=== PATIENT | female | born 1940 | race Caucasian/White ===

== ENCOUNTER 2020-05-03 02:54 | Inpatient (IN) | payer MEDICARE ==
[~2020-05-03] VITALS: Ht 165.1 cm; Wt 64.1 kg
[2020-05-03] MEDS: NITROGLYCERIN SUBLINGUAL 0.4 MG BOTTLE OF 25. SL PRN ×2 (03:12→03:25)
[2020-05-03 03:29] LABS: BASO # 0.2 x10^3/uL (0.0-0.2); BASO % 1 % (0-3); EOS # 0.2 x10^3/uL (0.0-0.7); EOS % 2 % (0-3); HEMATOCRIT 40.3 % (36.0-47.0); HEMOGLOBIN 13.4 g/dL (12.0-15.5); LYMPH # 1.7 x10^3/uL (1.0-4.8); LYMPH % 13 % (24-48); MEAN CORPUSCULAR HEMOGLOBIN 36 pg (25-35); MEAN CORPUSCULAR HGB CONC 33 g/dL (31-37); MEAN CORPUSCULAR VOLUME 108 fL (79-100); MONO # 0.4 x10^3/uL (0.0-1.1); MONO % 3 % (0-9); NEUT # 10.7 x10^3/uL (1.8-7.7); NEUT % 81 % (31-73); PLATELET COUNT 253 x10^3/uL (140-400); RED BLOOD COUNT 3.75 x10^6/uL (3.50-5.40); RED CELL DISTRIBUTION WIDTH 16.6 % (11.5-14.5); WHITE BLOOD COUNT 13.2 x10^3/uL (4.0-11.0)
[2020-05-03 03:43] LABS: CALCIUM 9.2 mg/dL (8.5-10.1); CREATININE 0.9 mg/dL (0.6-1.0); GFR 59.9
[2020-05-03 03:48] LABS: ALBUMIN 3.3 g/dL (3.4-5.0); ALBUMIN/GLOBULIN RATIO 0.8 (1.0-1.7); TOTAL BILIRUBIN 1.1 mg/dL (0.2-1.0); TOTAL PROTEIN 7.7 g/dL (6.4-8.2)
[2020-05-03] MEDS ORDERED: HEPARIN for IV BOLUS 10,000 UNIT/10 ML VIAL. IV ONE (04:00)
[2020-05-03] MEDS ORDERED: CONTRAST GIVEN. MC PRN (04:00)
[2020-05-03] MEDS ORDERED: IV RINGERS,LACTATED 1000ML 1,000 ML IV ONE (04:00)
[2020-05-03] MEDS ORDERED: HEPARIN 25,000UTS/250ML PREMIX 250 ML IV ONE ×2 (04:00)
--- NOTE | 2020-05-03 04:10 | PHYS DOC ---
General Adult EDM: Chief Complaint: SHORTNESS OF BREATH HPI: HPI: The history was obtained from the EMS and the patient. Patient is a 80-year-old female with PMH pacemaker placement, hyperlipidemia who presents with a chief complaint of chest pain and shortness of breath. Patient states she developed sudden onset chest pain approximately 3 hours prior to arrival. She states she noted associated shortness of breath as well. She does not use oxygen at home. Denies any history of heart attack. Unsure of why she has a pacemaker. Denies cough or fever. EMS states she was 80% on room air upon arrival. They states she did improve quickly with a nonrebreather to 98%. Patient states she feels as though something is sitting on her chest. She does note diaphoresis. Denies nausea. States the chest pressure is nonradiating. Nothing alleviates or exacerbate her symptoms. She does not think she has had a heart catheterization or invasive cardiac testing in the past. She denies syncope. She denies history of blood clot in legs or lungs. Denies any swelling to legs. States that she has ambulatory at baseline. Review of Systems: Review of Systems: Constitutional: Denies fever or chills. [] Eyes: Denies change in visual acuity. [] HENT: Denies nasal congestion or sore throat. [] Respiratory: Positive for shortness of breath Cardiovascular: Positive for chest pain GI: Denies abdominal pain, nausea, vomiting, bloody stools or diarrhea. [] : Denies dysuria. [] Musculoskeletal: Denies back pain or joint pain. [] Integument: Denies rash. [] Neurologic: Denies headache, focal weakness or sensory changes. [] Endocrine: Denies polyuria or polydipsia. [] Lymphatic: Denies swollen glands. [] Psychiatric: Denies depression or anxiety. [] Heart Score: HEART Score for Chest Pain: HEART Score for Chest Pain Response (Comments) Value History Highly Suspicious [address] Depression 2 Age > 65 2 Risk Factors >3 Risk Factors or Hx CAD 2 Troponin >3 x Normal Limit 2 Total 10 Risk Factors: Risk Factors: DM, Current or recent (<one month) smoker, HTN, HLP, family history of CAD, obesity. Risk Scores: Score 0 - 3: 2.5% MACE over next 6 weeks - Discharge Home Score 4 - 6: 20.3% MACE over next 6 weeks - Admit for Clinical Observation Score 7 - 10: 72.7% MACE over next 6 weeks - Early Invasive Strategies Current Medications: Current Medications Medications (Trade) Dose Ordered Sig/[facility] Start Time Stop Time Status Last Admin Dose Admin Aspirin (Aspirin Chewable) 324 mg 1X ONCE 05/03/20 04:00 05/03/20 04:01 UNV Fentanyl Citrate (Fentanyl 2ml Vial) 50 mcg 1X ONCE 05/03/20 04:30 05/03/20 04:31 Heparin Sodium (Porcine) (Heparin Sodium) 4,000 unit 1X ONCE 05/03/20 04:00 05/03/20 04:01 05/03/20 03:33 4,000 UNIT Heparin Sodium/ Dextrose 250 ml @ 0 mls/hr 1X ONCE 05/03/20 04:00 05/03/20 04:01 05/03/20 03:43 8.3 MLS/HR Info (CONTRAST GIVEN -- Rx MONITORING) 1 each PRN DAILY PRN 05/03/20 04:00 05/05/20 03:59 Iohexol (Omnipaque 350 Mg/ml) 70 ml 1X ONCE 05/03/20 04:30 05/03/20 04:31 Nitroglycerin (Nitrostat) 0.4 mg PRN Q5MIN PRN 05/03/20 03:15 05/03/20 03:25 0.4 MG Ringer's Solution 1,000 ml @ 1,000 mls/hr 1X ONCE 05/03/20 04:00 05/03/20 04:59 05/03/20 03:46 1,000 MLS/HR Allergies: Allergies: Allergies Coded Allergies Type Severity Reaction Last Updated Verified No Known Drug Allergies 05/03/20 No Physical Exam: PE: Constitutional: Well developed, well nourished, no acute distress, non-toxic appearance. [] HENT: Normocephalic, atraumatic, bilateral external ears normal, oropharynx moist, no oral exudates, nose normal. [] Eyes: PERRLA, EOMI, conjunctiva normal, no discharge. [] Neck: Normal range of motion, no tenderness, supple, no stridor. [] Cardiovascular:H tachycardic. Lungs & Thorax: Rhonchorous breath sounds noted at the bases bilaterally. Tachypneic. Abdomen: Bowel sounds normal, soft, no tenderness, no masses, no pulsatile ma sses. [] Skin: Diaphoretic. Back: No tenderness, no CVA tenderness. [] Extremities: No tenderness, no cyanosis, no clubbing, ROM intact, no edema. [] Neurologic: Alert and oriented X 3, normal motor function, normal sensory function, no focal deficits noted. [] Psychologic: Affect normal, judgement normal, mood normal. [] Current Patient Data: Labs: Laboratory Tests Test 05/03/20 03:08 05/03/20 03:09 05/03/20 03:10 Glucose (Fingerstick) 274 mg/dL (70-99) H White Blood Count 13.2 x10^3/uL (4.0-11.0) H Red Blood Count 3.75 x10^6/uL (3.50-5.40) Hemoglobin 13.4 g/dL (12.0-15.5) Hematocrit 40.3 % (36.0-47.0) Mean Corpuscular Volume 108 fL (79-100) H Mean Corpuscular Hemoglobin 36 pg (25-35) H Mean Corpuscular Hemoglobin Concent 33 g/dL (31-37) Red Cell Distribution Width 16.6 % (11.5-14.5) H Platelet Count 253 x10^3/uL (140-400) Neutrophils (%) (Auto) 81 % (31-73) H Lymphocytes (%) (Auto) 13 % (24-48) L Monocytes (%) (Auto) 3 % (0-9) Eosinophils (%) (Auto) 2 % (0-3) Basophils (%) (Auto) 1 % (0-3) Neutrophils # (Auto) 10.7 x10^3/uL (1.8-7.7) H Lymphocytes # (Auto) 1.7 x10^3/uL (1.0-4.8) Monocytes # (Auto) 0.4 x10^3/uL (0.0-1.1) Eosinophils # (Auto) 0.2 x10^3/uL (0.0-0.7) Basophils # (Auto) 0.2 x10^3/uL (0.0-0.2) Sodium Level 139 mmol/L (136-145) Potassium Level 4.0 mmol/L (3.5-5.1) Chloride Level 102 mmol/L (98-107) Carbon Dioxide Level 28 mmol/L (21-32) Anion Gap 9 (6-14) Blood Urea Nitrogen 13 mg/dL (7-20) Creatinine 0.9 mg/dL (0.6-1.0) Estimated GFR (Cockcroft-Gault) 59.9 BUN/Creatinine Ratio 14 (6-20) Glucose Level 310 mg/dL (70-99) H Calcium Level 9.2 mg/dL (8.5-10.1) Total Bilirubin 1.1 mg/dL (0.2-1.0) H Aspartate Amino Transferase (AST) 26 U/L (15-37) Alanine Aminotransferase (ALT) 26 U/L (14-59) Alkaline Phosphatase 84 U/L (46-116) Troponin I Quantitative 0.388 ng/mL (0.000-0.055) Total Protein 7.7 g/dL (6.4-8.2) Albumin 3.3 g/dL (3.4-5.0) L Albumin/Globulin Ratio 0.8 (1.0-1.7) L POC Troponin I 0.06 ng/ml (<0.08) Laboratory Tests 05/03/20 03:09 Laboratory Tests 05/03/20 03:09 Vital Signs: Vital Signs Date Time Temp Pulse Resp B/P (MAP) Pulse Ox O2 Delivery O2 Flow Rate FiO2 05/03/20 03:25 100 148/75 EKG: EKG: EKG consistent with tachycardia. Nonspecific interventricular conduction delay noted. Ventricular rate of 117 bpm. Left axis noted. ST segment elevation noted in the inferior and lateral precordial leads. Inverted T waves noted in leads I, aVR, aVL. No previous for comparison. 0301 EKG consistent with tachycardia. Nonspecific interventricular conduction delay noted. Ventricular rate of 101 bpm. Left axis noted. ST segment elevation noted in the inferior lateral precordial leads. Flipped T waves noted in leads I, aVR, aVL. No change from EKG earlier today.0325 EKG consistent with sinus rhythm. Ventricular rate of 96 bpm. Nonspecific interventricular conduction delay noted. ST elevation noted in the inferior lateral precordial leads. Inverted T waves noted in leads I, aVR, aVL. Left axis present. Ventricular rate of 96 bpm. Similar to EKG obtained earlier today. Radiology/Procedures: Radiology/Procedures: [] Course & Med Decision Making: Course & Med Decision Making Pertinent Labs and Imaging studies reviewed. (See chart for details) Patient is an 80-year-old female who arrives via EMS with a chief complaint of acute onset chest pain shortness of breath. Upon arrival the patient appears diaphoretic and ill. She is at 98% on a nonrebreather. Initial EKG does show concerning discordant ST segment elevation in the inferior lateral precordial leads. Inverted T waves noted in leads I, aVL. Nonspecific interventricular conduction delay was present. No classic STEMI patterns were noted. However I did discuss the case immediately with at 0305. given the patient's clinical appearance and abnormal EKG. He recommended pain control, troponin testing, and repeat EKG and reevaluation. Initial high-sensitivity troponin returned at 0.388. This is in the setting of normal kidney function. I did perform bedside echo and did not reveal any obvious right ventricular dilation. Multiple EKGs were repeated and showed no dynamic ischemic changes. I again discussed the case with at 0325. Patient's pain has improved with nitroglycerin and fentanyl. Cardiology did recommend heparin bolus and infusio n. Aspirin was administered. Unclear exact etiology of her symptoms and troponin elevation at this time. However I do suspect this is most likely ACS and NSTEMI etiology versus pulmonary embolism. Per the recommendations of cardiology CT angiogram of the chest will be deferred as she may go for cardiac catheterization later this morning. Given the patient shows no hemodynamic instability I do feel it is reasonable to defer CT imaging given she does have heparin infusion running at this time. Patient has remained hemodynamically stable and chest pain-free in the emergency department. She was able to be de- escalated to nasal cannula with appropriate oxygenation while in the emergency department. She will be hospitalized to the intensive care unit for close monitoring. Tyronon Disclaimer: Luis A Disclaimer: This electronic medical record was generated, in whole or in part, using a voice recognition dictation system. Departure Departure Impression: Primary Impression: NSTEMI (non-ST elevated myocardial infarction) Additional Impressions: Hyperlipidemia Qualified Codes: E78.5 - Hyperlipidemia, unspecified Hypertension Qualified Codes: I10 - Essential (primary) hypertension Abnormal EKG History of pacemaker Disposition: ADMITTED INPATIENT Justicifation of Admission Dx: Justifications for Admission: Justification of Admission Dx: Yes Angina: Cresendo Worsening of Sym NH: Acute NSTEMI KAYODE MACEDO DO May 03, 2020 04:10
[2020-05-03 04:13] LABS: ISTAT BE VENOUS 4 mmol/L (0-3); ISTAT HCO3 VEN 30 mmol/L (24-28); ISTAT PCO2 VEN 53 mmHg (41-51); ISTAT PH VEN 7.36 (7.32-7.42); ISTAT PO2 VEN 58 mmHg (20-40); ISTAT SAT O2 VEN 88 %; ISTAT TCO2 VEN 31 mmol/L (21-32)
[2020-05-03] MEDS ORDERED: ONDANSETRON PF 4 MG/2 ML VIAL. IV PRN (04:15)
[2020-05-03] MEDS ORDERED: MORPHINE SULFATE 4 MG/ML VIAL. IV PRN (04:15)
[2020-05-03] MEDS ORDERED: IOHEXOL 350 MG/ML 100 ML VIAL. IV ONE (04:30)
[2020-05-03] MEDS ORDERED: fentaNYL PF VIAL 100 MCG/2 ML VIAL IVP ONE (04:30)
[2020-05-03] MEDS ORDERED: ASPIRIN CHEWABLE 81 MG TABLET. PO ONE (04:30)
[2020-05-03 04:37] LABS: CHOLESTEROL/HDL RATIO 2.5
--- NOTE | 2020-05-03 04:37 | RAD ---
INDICATION: Reason: CP / Spl. Instructions: / History: COMPARISON: None. FINDINGS: Single view of chest obtained. Pacemaker is seen as well as mild prominence of cardiac silhouette. Interstitial and alveolar opacities bilaterally most severe at the lung bases. Obliquely oriented line near the right lung apex. IMPRESSION: * Interstitial and alveolar opacities bilaterally which could be from edema or infiltrate. * Obliquely oriented line near the right apex partially seen. Would favor that this is secondary to overlap of structures rather than pleural line from pneumothorax given the morphology. Electronically signed by: Andrei Logan MD (05/03/2020 4:34 AM) [id number]
--- NOTE | 2020-05-03 09:37 | PDOC1 ---
History and Physical Date of Service: DOS: DATE: 05/03/20 TIME: 09:33 Chief Complaint: Chief Complain: Chest pain History of Present Illness: HPI: Patient is an 80-year-old female with past medical history of pacemaker placement, dyslipidemia who comes in with shortness of breath and chest pain started a couple hours ago. Patient is a poor historian and is unsure why she has a pacemaker. Patient was saturating 80% on room air upon arrival. Patient describes the chest pain as pressure-like and there is associated diaphoresis. Pain does not radiate anywhere. There is no exacerbating or alleviating factors. Denies fevers, abdominal pain, diarrhea, dysuria, syncope, or palpitations. Past Medical/Surgical History: PMH/PSH: Pacemaker placement Dyslipidemia Allergies: Allergies: Coded Allergies: No Known Drug Allergies (Unverified , 05/03/20) Family History: Family History: Reviewed and none reported. Patient is a poor historian Social History: Social History: Denies alcohol, drug, was tobacco abuse Current Medications: Current Medications Current Medications Ringer's Solution 1,000 ml @ 1,000 mls/hr 1X ONCE IV Last administered on 05/03/20at 03:46; Start 05/03/20 at 04:00; Stop 05/03/20 at 04:59; Status DC Nitroglycerin (Nitrostat) 0.4 mg PRN Q5MIN PRN SL CHEST PAIN Last administered on 05/03/20at 03:25; Start 05/03/20 at 03:15 Heparin Sodium (Porcine) (Heparin Sodium) 4,000 unit 1X ONCE IV Last administered on 05/03/20at 03:33; Start 05/03/20 at 04:00; Stop 05/03/20 at 04:01; Status DC Heparin Sodium/ Dextrose 250 ml @ 0 mls/hr 1X ONCE IV Last administered on 05/03/20at 03:43; Start 05/03/20 at 04:00; Stop 05/03/20 at 04:01; Status DC Fentanyl Citrate (Fentanyl 2ml Vial) 50 mcg 1X ONCE IVP ; Start 05/03/20 at 04:30; Stop 05/03/20 at 04:31; Status DC Iohexol (Omnipaque 350 Mg/ml) 70 ml 1X ONCE IV ; Start 05/03/20 at 04:30; Stop 05/03/20 at 04:31; Status DC Info (CONTRAST GIVEN -- Rx MONITORING) 1 each PRN DAILY PRN MC SEE COMMENTS; Start 05/03/20 at 04:00; Stop 05/05/20 at 03:59 Aspirin (Aspirin Chewable) 324 mg 1X ONCE PO Last administered on 05/03/20at 04:15; Start 05/03/20 at 04:30; Stop 05/03/20 at 04:31; Status DC Ondansetron HCl (Zofran) 4 mg PRN Q8HRS PRN IV NAUSEA/VOMITING 1ST CHOICE; Start 05/03/20 at 04:15; Stop 05/04/20 at 04:14 Morphine Sulfate (Morphine Sulfate) 4 mg PRN Q2HR PRN IV SEVERE PAIN 7-10; Start 05/03/20 at 04:15; Stop 05/04/20 at 04:14 Heparin Sodium/ Dextrose 250 ml @ 8.34 mls/hr ONCE ONCE IV ; Start 05/03/20 at 04:00; Stop 05/04/20 at 09:58 ROS: Review of Systems Review of System REVIEW OF SYSTEMS: GENERAL: Denies weakness SKIN: No bruising, hair changes or rashes. EYES: No blurred, double or loss of vision. NOSE AND THROAT: No history of nosebleeds, hoarseness or sore throat. HEART: No history of palpitations, chest pain or shortness of breath on exertion. LUNGS: Denies cough, hemoptysis, wheezing or shortness of breath. GASTROINTESTINAL: Denies changes in appetite, nausea, vomiting, diarrhea or constipation. GENITOURINARY: No history of frequency, urgency, hesitancy or nocturia. NEUROLOGIC: Denies history of numbness, tingling, or tremor. PSYCHIATRIC: No history of panic, anxiety or depression. ENDOCRINE: No history of heat or cold intolerance, polyuria or polydipsia. EXTREMITIES: Denies joint pain, pain on walking or stiffness. Physical Exam: Vital Signs: Vital Signs Date Time Temp Pulse Resp B/P (MAP) Pulse Ox O2 Delivery O2 Flow Rate FiO2 05/03/20 04:07 88 150/70 (96) 99 Nasal Cannula 2.0 05/03/20 03:37 28 05/03/20 02:57 98.1 98.1 Physcial Exam: GEN: Minimal distress. Alert and oriented to self only. HEENT: Normal cephalic, atraumatic, external auditory canals are patent EYES: Extraocular muscles are intact, pupil are equally round and reactive to light and accommodation MUSCULOSKELETAL: Well developed , well nourished, good range of motion ENDOCRINE: No thyromegaly was palpated LYMPHATICS: No cervical chain or axillary nodes were noted HEMATOPOIETIC: No bruising NECK: Supple, no JVD, no thyromegaly was noted LUNGS: Clear to auscultation in all lung adams without rhonchi or wheezing HEART: RRR, S!, S2 present. Peripheral pulses intact, no obvious murmurs noted ABDOMEN: Soft, nontender. Positive bowel sounds, no organomegaly, normal bowel sounds EXTREMITIES: Without clubbing, cyanosis, or edema. Pedal pulses intact. Negative Homans sign NEUROLOGIC: Normal speech and tone. A&O x 3, moves all extremities, no obvious focal deficits PSYCHIATRIC: Normal affect, normal mood. Stable SKIN: No ulcerations or rashes, good skin turgor, no jaundice VASCULAR: Good capillary refill, neurovascular bundle appears to be intact Labs: Labs: Laboratory Tests Test 05/03/20 03:08 05/03/20 03:09 05/03/20 03:10 05/03/20 04:01 Glucose (Fingerstick) 274 mg/dL (70-99) White Blood Count 13.2 x10^3/uL (4.0-11.0) Red Blood Count 3.75 x10^6/uL (3.50-5.40) Hemoglobin 13.4 g/dL (12.0-15.5) Hematocrit 40.3 % (36.0-47.0) Mean Corpuscular Volume 108 fL (79-100) Mean Corpuscular Hemoglobin 36 pg (25-35) Mean Corpuscular Hemoglobin Concent 33 g/dL (31-37) Red Cell Distribution Width 16.6 % (11.5-14.5) Platelet Count 253 x10^3/uL (140-400) Neutrophils (%) (Auto) 81 % (31-73) Lymphocytes (%) (Auto) 13 % (24-48) Monocytes (%) (Auto) 3 % (0-9) Eosinophils (%) (Auto) 2 % (0-3) Basophils (%) (Auto) 1 % (0-3) Neutrophils # (Auto) 10.7 x10^3/uL (1.8-7.7) Lymphocytes # (Auto) 1.7 x10^3/uL (1.0-4.8) Monocytes # (Auto) 0.4 x10^3/uL (0.0-1.1) Eosinophils # (Auto) 0.2 x10^3/uL (0.0-0.7) Basophils # (Auto) 0.2 x10^3/uL (0.0-0.2) Sodium Level 139 mmol/L (136-145) Potassium Level 4.0 mmol/L (3.5-5.1) Chloride Level 102 mmol/L (98-107) Carbon Dioxide Level 28 mmol/L (21-32) Anion Gap 9 (6-14) Blood Urea Nitrogen 13 mg/dL (7-20) Creatinine 0.9 mg/dL (0.6-1.0) Estimated GFR (Cockcroft-Gault) 59.9 BUN/Creatinine Ratio 14 (6-20) Glucose Level 310 mg/dL (70-99) Calcium Level 9.2 mg/dL (8.5-10.1) Total Bilirubin 1.1 mg/dL (0.2-1.0) Aspartate Amino Transf (AST/SGOT) 26 U/L (15-37) Alanine Aminotransferase (ALT/SGPT) 26 U/L (14-59) Alkaline Phosphatase 84 U/L (46-116) Troponin I Quantitative 0.388 ng/mL (0.000-0.055) FK-[id number]-Type Natriuretic Peptide 68828 pg/mL (0-449) Total Protein 7.7 g/dL (6.4-8.2) Albumin 3.3 g/dL (3.4-5.0) Albumin/Globulin Ratio 0.8 (1.0-1.7) Triglycerides Level 83 mg/dL (0-150) Cholesterol Level 153 mg/dL (0-200) LDL Cholesterol, Calculated 74 mg/dL (0-100) VLDL Cholesterol, Calculated 17 mg/dL (0-40) Non-HDL Cholesterol Calculated 91 mg/dL (0-129) HDL Cholesterol 62 mg/dL (40-60) Cholesterol/HDL Ratio 2.5 Bedside Troponin I 0.06 ng/ml (<0.08) Bedside Venous pH 7.36 (7.32-7.42) Bedside Venous pCO2 53 mmHg (41-51) Bedside Venous pO2 58 mmHg (20-40) Venous Blood HCO3 30 mmol/L (24-28) POC Venous O2 Saturation (Christine) 88 % Bedside FiO2 21.0 Test 05/03/20 07:53 05/03/20 07:56 Troponin I Quantitative 1.793 ng/mL (0.000-0.055) SARS-CoV-2 Antigen (Rapid) Negative (NEGATIVE) Laboratory Tests Test 05/03/20 03:08 05/03/20 03:09 05/03/20 03:10 05/03/20 04:01 Glucose (Fingerstick) 274 mg/dL (70-99) White Blood Count 13.2 x10^3/uL (4.0-11.0) Red Blood Count 3.75 x10^6/uL (3.50-5.40) Hemoglobin 13.4 g/dL (12.0-15.5) Hematocrit 40.3 % (36.0-47.0) Mean Corpuscular Volume 108 fL (79-100) Mean Corpuscular Hemoglobin 36 pg (25-35) Mean Corpuscular Hemoglobin Concent 33 g/dL (31-37) Red Cell Distribution Width 16.6 % (11.5-14.5) Platelet Count 253 x10^3/uL (140-400) Neutrophils (%) (Auto) 81 % (31-73) Lymphocytes (%) (Auto) 13 % (24-48) Monocytes (%) (Auto) 3 % (0-9) Eosinophils (%) (Auto) 2 % (0-3) Basophils (%) (Auto) 1 % (0-3) Neutrophils # (Auto) 10.7 x10^3/uL (1.8-7.7) Lymphocytes # (Auto) 1.7 x10^3/uL (1.0-4.8) Monocytes # (Auto) 0.4 x10^3/uL (0.0-1.1) Eosinophils # (Auto) 0.2 x10^3/uL (0.0-0.7) Basophils # (Auto) 0.2 x10^3/uL (0.0-0.2) Sodium Level 139 mmol/L (136-145) Potassium Level 4.0 mmol/L (3.5-5.1) Chloride Level 102 mmol/L (98-107) Carbon Dioxide Level 28 mmol/L (21-32) Anion Gap 9 (6-14) Blood Urea Nitrogen 13 mg/dL (7-20) Creatinine 0.9 mg/dL (0.6-1.0) Estimated GFR (Cockcroft-Gault) 59.9 BUN/Creatinine Ratio 14 (6-20) Glucose Level 310 mg/dL (70-99) Calcium Level 9.2 mg/dL (8.5-10.1) Total Bilirubin 1.1 mg/dL (0.2-1.0) Aspartate Amino Transf (AST/SGOT) 26 U/L (15-37) Alanine Aminotransferase (ALT/SGPT) 26 U/L (14-59) Alkaline Phosphatase 84 U/L (46-116) Troponin I Quantitative 0.388 ng/mL (0.000-0.055) AT-Weq-X-Type Natriuretic Peptide 57546 pg/mL (0-449) Total Protein 7.7 g/dL (6.4-8.2) Albumin 3.3 g/dL (3.4-5.0) Albumin/Globulin Ratio 0.8 (1.0-1.7) Triglycerides Level 83 mg/dL (0-150) Cholesterol Level 153 mg/dL (0-200) LDL Cholesterol, Calculated 74 mg/dL (0-100) VLDL Cholesterol, Calculated 17 mg/dL (0-40) Non-HDL Cholesterol Calculated 91 mg/dL (0-129) HDL Cholesterol 62 mg/dL (40-60) Cholesterol/HDL Ratio 2.5 Bedside Troponin I 0.06 ng/ml (<0.08) Bedside Venous pH 7.36 (7.32-7.42) Bedside Venous pCO2 53 mmHg (41-51) Bedside Venous pO2 58 mmHg (20-40) Venous Blood HCO3 30 mmol/L (24-28) POC Venous O2 Saturation (Christine) 88 % Bedside FiO2 21.0 Test 05/03/20 07:53 05/03/20 07:56 Troponin I Quantitative 1.793 ng/mL (0.000-0.055) SARS-CoV-2 Antigen (Rapid) Negative (NEGATIVE) Images: Images CXR IMPRESSION: * Interstitial and alveolar opacities bilaterally which could be from edema or infiltrate. * Obliquely oriented line near the right apex partially seen. Would favor that this is secondary to overlap of structures rather than pleural line from pneumothorax given the morphology. Assessment/Plan Assessment/Plan Chest pain concerning for NSTEMI, rule out ACS Acute hypoxic respiratory failure DLD Pacemaker placement Chest pain concerning for unstable angina/NSTEMI versus STEMI EKG showing Troponin of [id number] Continue aspirin, consider Plavix if intermediate risk will defer this to cardiology Cardiology consulted for predischarge stress testing or left heart cath Continue nitroglycerin as needed for pain Continue beta-vishal if blood pressures allow Continue high intensity statins IV morphine as needed Consider Lovenox Maintain O2 sats between 88 to 95% Trend troponins Repeat EKG in the a.m. Continue telemetry monitoring Monitor for electrolyte abnormalities Avoid NSAIDs Heparin drip for DVT prophylaxis Protonix GI prophylaxis ADA diet Full code Discussed with RN and SW Disposition pending cardiology evaluation Surrogate decision maker is the daughter Justifications for Admission Other Justification CRISTA VELASQUEZ MD May 03, 2020 09:36
[2020-05-03 11:24] LABS: PROTHROMBIN TIME PATIENT 13.8 SEC (11.7-14.0)
[2020-05-03] MEDS ORDERED: ONDANSETRON PF 4 MG/2 ML VIAL. IVP PRN (15:30)
[2020-05-03] MEDS ORDERED: CHOL500021 PO (15:38)
[2020-05-03] MEDS ORDERED: ATOR40TA59 PO (15:38)
[2020-05-03] MEDS ORDERED: CYCL5TAB PO (15:38)
[2020-05-03] MEDS ORDERED: ERGO800010 PO (15:38)
[2020-05-03] MEDS ORDERED: DULO30CA44 PO (15:38)
[2020-05-03] MEDS ORDERED: TRAZ150T49 PO (15:38)
[2020-05-03] MEDS ORDERED: ASCO500T3 PO (15:38)
[2020-05-03] MEDS ORDERED: SOTA80TA48 PO (15:38)
[2020-05-03] MEDS ORDERED: ASPI-886 PO (15:38)
[2020-05-03] MEDS ORDERED: OMEG1CAP50 PO (15:38)
[2020-05-03] MEDS ORDERED: ACET325T21 PO (15:38)
[2020-05-03] MEDS ORDERED: LISI-130 PO (15:38)
--- NOTE | 2020-05-03 16:07 | PDOC2 ---
CONSULT Date of Consult Date of Consult DATE: 05/03/20 TIME: 16:01 Reason for Consult Reason for Consult: Chest pain and shortness of breath Referring Physician Referring Physician: Dr. Pickering Identification/Chief Complaint Chief Complaint Chest pain and shortness of breath Source Source: Chart review, Patient History of Present Illness Reason for Visit: The patient is an 80-year-old female who developed chest pressure and shortness of breath while at home. Paramedics were called and found her O2 at 80% but this increased to 98% on a nonrebreather. In the emergency room the patient EKG showed no acute ST segment elevation. Troponin later this morning increased to 1.793. After treatment the patient was feeling significantly better. Chest x- ray did show infiltrates and the patient has been treated for probable heart failure. Her BNP is significantly elevated at 15 854. She has a history of a permanent pacemaker but at this time cannot get further clear history from the patient herself. Past Medical History Cardiovascular: CAD, HTN, Other (Pacemaker) Pulmonary: COPD Past Surgical History Past Surgical History: Other (Permanent pacemaker) Family History Family History: Hypertension Social History No ALCOHOL: none Current Problem List Problem List Problems Medical Problems: (1) Abnormal EKG Status: Acute (2) History of pacemaker Status: Acute (3) Hyperlipidemia Status: Acute (4) Hypertension Status: Acute (5) NSTEMI (non-ST elevated myocardial infarction) Status: Acute Current Medications Current Medications Current Medications Ringer's Solution 1,000 ml @ 1,000 mls/hr 1X ONCE IV Last administered on 05/03/20at 03:46; Start 05/03/20 at 04:00; Stop 05/03/20 at 04:59; Status DC Nitroglycerin (Nitrostat) 0.4 mg PRN Q5MIN PRN SL CHEST PAIN Last administered on 05/03/20at 03:25; Start 05/03/20 at 03:15 Heparin Sodium (Porcine) (Heparin Sodium) 4,000 unit 1X ONCE IV Last administered on 05/03/20at 03:33; Start 05/03/20 at 04:00; Stop 05/03/20 at 04:01; Status DC Heparin Sodium/ Dextrose 250 ml @ 0 mls/hr 1X ONCE IV Last administered on 05/03/20at 03:43; Start 05/03/20 at 04:00; Stop 05/03/20 at 04:01; Status DC Fentanyl Citrate (Fentanyl 2ml Vial) 50 mcg 1X ONCE IVP ; Start 05/03/20 at 04:30; Stop 05/03/20 at 04:31; Status DC Iohexol (Omnipaque 350 Mg/ml) 70 ml 1X ONCE IV ; Start 05/03/20 at 04:30; Stop 05/03/20 at 04:31; Status DC Info (CONTRAST GIVEN -- Rx MONITORING) 1 each PRN DAILY PRN MC SEE COMMENTS; Start 05/03/20 at 04:00; Stop 05/05/20 at 03:59 Aspirin (Aspirin Chewable) 324 mg 1X ONCE PO Last administered on 05/03/20at 04:15; Start 05/03/20 at 04:30; Stop 05/03/20 at 04:31; Status DC Ondansetron HCl (Zofran) 4 mg PRN Q8HRS PRN IV NAUSEA/VOMITING 1ST CHOICE; Start 05/03/20 at 04:15; Stop 05/03/20 at 15:32; Status DC Morphine Sulfate (Morphine Sulfate) 4 mg PRN Q2HR PRN IV SEVERE PAIN 7-10; Start 05/03/20 at 04:15; Stop 05/04/20 at 04:14 Heparin Sodium/ Dextrose 250 ml @ 8.34 mls/hr ONCE ONCE IV Last administered on 05/03/20at 12:56; Start 05/03/20 at 04:00; Stop 05/04/20 at 09:58 Ondansetron HCl (Zofran) 4 mg PRN Q6HRS PRN IVP NAUSEA/VOMITING; Start 05/03/20 at 15:30 Pantoprazole Sodium (Protonix) 40 mg DAILYAC PO ; Start 05/04/20 at 07:30 Active Scripts Active Reported Trazodone Hcl 150 Mg Tablet 1 Tab PO QHS 30 Days Sotalol (Sotalol Hcl) 80 Mg Tablet 1 Tab PO BID Lisinopril 40 Mg Tablet 1 Tab PO DAILY Fish Oil 1,000 Mg Softgel ([place]-3 Fatty Acids/Fish Oil) 1 Each Capsule 1 Cap PO DAILY 30 Days Duloxetine Hcl 30 Mg Capsule.dr 30 Mg PO DAILY Ergocalciferol (Ergocalciferol (Vitamin D2)) 200 Mcg/1 Ml Drops 200 Mcg PO Cyclobenzaprine Hcl 5 Mg Tablet 1 Tab PO QHS D3-50 (Cholecalciferol (Vitamin D3)) 50,000 Unit Capsule 1 Cap PO WEEKLY 28 Days Atorvastatin Calcium 40 Mg Tablet 1 Tab PO DAILY Aspirin Ec (Aspirin) 81 Mg Tablet.dr 1 Tab PO DAILY Ascorbic Acid 500 Mg Tablet 500 Mg PO Acetaminophen 325 Mg Tablet 2 Tab PO PRN DAILY PRN 30 Days Allergies Allergies: Coded Allergies: No Known Drug Allergies (Unverified , 05/03/20) ROS General: YES: Fatigue Respiratory: YES: Shortness of breath Cardiovascular: yes Chest Pain Physical Exam General: mild distress HEENT: Atraumatic Lungs: Other (Decreased breath sounds) Heart: Regular rate Abdomen: Normal bowel sounds Vitals VITALS Vital Signs Date Time Temp Pulse Resp B/P (MAP) Pulse Ox O2 Delivery O2 Flow Rate FiO2 05/03/20 15:17 88 209/91 (130) 98 Nasal Cannula 2.0 05/03/20 14:47 18 05/03/20 02:57 98.1 98.1 Labs Labs Laboratory Tests Test 05/03/20 03:08 05/03/20 03:09 05/03/20 03:10 05/03/20 04:01 Glucose (Fingerstick) 274 mg/dL (70-99) White Blood Count 13.2 x10^3/uL (4.0-11.0) Red Blood Count 3.75 x10^6/uL (3.50-5.40) Hemoglobin 13.4 g/dL (12.0-15.5) Hematocrit 40.3 % (36.0-47.0) Mean Corpuscular Volume 108 fL (79-100) Mean Corpuscular Hemoglobin 36 pg (25-35) Mean Corpuscular Hemoglobin Concent 33 g/dL (31-37) Red Cell Distribution Width 16.6 % (11.5-14.5) Platelet Count 253 x10^3/uL (140-400) Neutrophils (%) (Auto) 81 % (31-73) Lymphocytes (%) (Auto) 13 % (24-48) Monocytes (%) (Auto) 3 % (0-9) Eosinophils (%) (Auto) 2 % (0-3) Basophils (%) (Auto) 1 % (0-3) Neutrophils # (Auto) 10.7 x10^3/uL (1.8-7.7) Lymphocytes # (Auto) 1.7 x10^3/uL (1.0-4.8) Monocytes # (Auto) 0.4 x10^3/uL (0.0-1.1) Eosinophils # (Auto) 0.2 x10^3/uL (0.0-0.7) Basophils # (Auto) 0.2 x10^3/uL (0.0-0.2) Sodium Level 139 mmol/L (136-145) Potassium Level 4.0 mmol/L (3.5-5.1) Chloride Level 102 mmol/L (98-107) Carbon Dioxide Level 28 mmol/L (21-32) Anion Gap 9 (6-14) Blood Urea Nitrogen 13 mg/dL (7-20) Creatinine 0.9 mg/dL (0.6-1.0) Estimated GFR (Cockcroft-Gault) 59.9 BUN/Creatinine Ratio 14 (6-20) Glucose Level 310 mg/dL (70-99) Calcium Level 9.2 mg/dL (8.5-10.1) Total Bilirubin 1.1 mg/dL (0.2-1.0) Aspartate Amino Transf (AST/SGOT) 26 U/L (15-37) Alanine Aminotransferase (ALT/SGPT) 26 U/L (14-59) Alkaline Phosphatase 84 U/L (46-116) Troponin I Quantitative 0.388 ng/mL (0.000-0.055) HI-Vlg-O-Type Natriuretic Peptide 17845 pg/mL (0-449) Total Protein 7.7 g/dL (6.4-8.2) Albumin 3.3 g/dL (3.4-5.0) Albumin/Globulin Ratio 0.8 (1.0-1.7) Triglycerides Level 83 mg/dL (0-150) Cholesterol Level 153 mg/dL (0-200) LDL Cholesterol, Calculated 74 mg/dL (0-100) VLDL Cholesterol, Calculated 17 mg/dL (0-40) Non-HDL Cholesterol Calculated 91 mg/dL (0-129) HDL Cholesterol 62 mg/dL (40-60) Cholesterol/HDL Ratio 2.5 Bedside Troponin I 0.06 ng/ml (<0.08) Bedside Venous pH 7.36 (7.32-7.42) Bedside Venous pCO2 53 mmHg (41-51) Bedside Venous pO2 58 mmHg (20-40) Venous Blood HCO3 30 mmol/L (24-28) POC Venous O2 Saturation (Christine) 88 % Bedside FiO2 21.0 Test 05/03/20 07:53 05/03/20 07:56 05/03/20 10:45 05/03/20 14:10 Troponin I Quantitative 1.793 ng/mL (0.000-0.055) 3.414 ng/mL (0.000-0.055) SARS-CoV-2 Antigen (Rapid) Negative (NEGATIVE) Prothrombin Time 13.8 SEC (11.7-14.0) Prothromb Time International Ratio 1.1 (0.8-1.1) Activated Partial Thromboplast Time 131 SEC (24-38) Heparin Anti-Xa Act, Unfractionated 0.53 IU/mL (0.30-0.70) Laboratory Tests Test 05/03/20 03:08 05/03/20 03:09 05/03/20 03:10 05/03/20 04:01 Glucose (Fingerstick) 274 mg/dL (70-99) White Blood Count 13.2 x10^3/uL (4.0-11.0) Red Blood Count 3.75 x10^6/uL (3.50-5.40) Hemoglobin 13.4 g/dL (12.0-15.5) Hematocrit 40.3 % (36.0-47.0) Mean Corpuscular Volume 108 fL (79-100) Mean Corpuscular Hemoglobin 36 pg (25-35) Mean Corpuscular Hemoglobin Concent 33 g/dL (31-37) Red Cell Distribution Width 16.6 % (11.5-14.5) Platelet Count 253 x10^3/uL (140-400) Neutrophils (%) (Auto) 81 % (31-73) Lymphocytes (%) (Auto) 13 % (24-48) Monocytes (%) (Auto) 3 % (0-9) Eosinophils (%) (Auto) 2 % (0-3) Basophils (%) (Auto) 1 % (0-3) Neutrophils # (Auto) 10.7 x10^3/uL (1.8-7.7) Lymphocytes # (Auto) 1.7 x10^3/uL (1.0-4.8) Monocytes # (Auto) 0.4 x10^3/uL (0.0-1.1) Eosinophils # (Auto) 0.2 x10^3/uL (0.0-0.7) Basophils # (Auto) 0.2 x10^3/uL (0.0-0.2) Sodium Level 139 mmol/L (136-145) Potassium Level 4.0 mmol/L (3.5-5.1) Chloride Level 102 mmol/L (98-107) Carbon Dioxide Level 28 mmol/L (21-32) Anion Gap 9 (6-14) Blood Urea Nitrogen 13 mg/dL (7-20) Creatinine 0.9 mg/dL (0.6-1.0) Estimated GFR (Cockcroft-Gault) 59.9 BUN/Creatinine Ratio 14 (6-20) Glucose Level 310 mg/dL (70-99) Calcium Level 9.2 mg/dL (8.5-10.1) Total Bilirubin 1.1 mg/dL (0.2-1.0) Aspartate Amino Transf (AST/SGOT) 26 U/L (15-37) Alanine Aminotransferase (ALT/SGPT) 26 U/L (14-59) Alkaline Phosphatase 84 U/L (46-116) Troponin I Quantitative 0.388 ng/mL (0.000-0.055) MA-Jcn-A-Type Natriuretic Peptide 50069 pg/mL (0-449) Total Protein 7.7 g/dL (6.4-8.2) Albumin 3.3 g/dL (3.4-5.0) Albumin/Globulin Ratio 0.8 (1.0-1.7) Triglycerides Level 83 mg/dL (0-150) Cholesterol Level 153 mg/dL (0-200) LDL Cholesterol, Calculated 74 mg/dL (0-100) VLDL Cholesterol, Calculated 17 mg/dL (0-40) Non-HDL Cholesterol Calculated 91 mg/dL (0-129) HDL Cholesterol 62 mg/dL (40-60) Cholesterol/HDL Ratio 2.5 Bedside Troponin I 0.06 ng/ml (<0.08) Bedside Venous pH 7.36 (7.32-7.42) Bedside Venous pCO2 53 mmHg (41-51) Bedside Venous pO2 58 mmHg (20-40) Venous Blood HCO3 30 mmol/L (24-28) POC Venous O2 Saturation (Christine) 88 % Bedside FiO2 21.0 Test 05/03/20 07:53 05/03/20 07:56 05/03/20 10:45 05/03/20 14:10 Troponin I Quantitative 1.793 ng/mL (0.000-0.055) 3.414 ng/mL (0.000-0.055) SARS-CoV-2 Antigen (Rapid) Negative (NEGATIVE) Prothrombin Time 13.8 SEC (11.7-14.0) Prothromb Time International Ratio 1.1 (0.8-1.1) Activated Partial Thromboplast Time 131 SEC (24-38) Heparin Anti-Xa Act, Unfractionated 0.53 IU/mL (0.30-0.70) Images Images Chest x-ray with mild infiltrates. Assessment/Plan Assessment/Plan 1. Non-ST elevated myocardial infarction. Patient second troponin is elevated to 1.793. EKG shows no acute ST segment elevation. Patient has been treated with heparin and aspirin. Will continue on rule out protocol. Will attempt to obtain further old records from the patient or her family. 2. Respiratory failure probably secondary to heart [place] [address]. Chest x-ray shows an infiltrate. Patient however is doing well with supplemental oxygen. Will check an echocardiogram. Will give additional Lasix and monitor effect. 3. Permanent pacemaker. Patient is a limited historian. Uncertain indication for the patient's pacemaker but will obtain further records and interrogate the device. 4. Reported hyperlipidemia. Will check lab and treat accordingly. Thank you for allowing us to participate in the care of your patient. ISABELLA CASEY MD May 03, 2020 16:07
[2020-05-03] MEDS ORDERED: FUROSEMIDE 40 MG/4 ML VIAL. IVP ONE (16:15)
[2020-05-03] MEDS ORDERED: LORazepam 0.5 MG TABLET PO PRN (17:15)
[2020-05-03] MEDS ORDERED: HEPARIN for IV BOLUS 10,000 UNIT/10 ML VIAL. IV PRN (19:30)
[2020-05-03 20:50] VITALS: BP 146/85
[2020-05-03] MEDS ORDERED: ACETAMINOPHEN 325 MG TABLET. PO PRN (23:00)
[2020-05-03] MEDS: traZODone 50 MG TABLET. PO SCH (23:08)
[2020-05-03] MEDS: CYCLOBENZAPRINE 10 MG TABLET. PO SCH (23:08)
[2020-05-03 23:19] VITALS: BP 155/53
[2020-05-04 05:00] VITALS: BP 136/55
[2020-05-04 06:50] LABS: BASO # 0.2 x10^3/uL (0.0-0.2); BASO % 3 % (0-3); EOS # 0.1 x10^3/uL (0.0-0.7); EOS % 1 % (0-3); HEMATOCRIT 32.5 % (36.0-47.0); HEMOGLOBIN 11.1 g/dL (12.0-15.5); LYMPH # 1.5 x10^3/uL (1.0-4.8); LYMPH % 23 % (24-48); MEAN CORPUSCULAR HEMOGLOBIN 36 pg (25-35); MEAN CORPUSCULAR HGB CONC 34 g/dL (31-37); MEAN CORPUSCULAR VOLUME 106 fL (79-100); MONO # 0.5 x10^3/uL (0.0-1.1); MONO % 8 % (0-9); NEUT # 4.2 x10^3/uL (1.8-7.7); NEUT % 65 % (31-73); PLATELET COUNT 167 x10^3/uL (140-400); RED BLOOD COUNT 3.06 x10^6/uL (3.50-5.40); RED CELL DISTRIBUTION WIDTH 16.6 % (11.5-14.5); WHITE BLOOD COUNT 6.5 x10^3/uL (4.0-11.0)
[2020-05-04 07:13] LABS: CALCIUM 8.5 mg/dL (8.5-10.1); CREATININE 0.7 mg/dL (0.6-1.0); GFR 80.1; POTASSIUM 3.1 mmol/L (3.5-5.1)
[2020-05-04] MEDS: HEPARIN 25,000UTS/250ML PREMIX 250 ML IV PRN (07:19)
[2020-05-04 07:23] VITALS: BP 160/62
[2020-05-04] MEDS: PANTOPRAZOLE 40 MG TABLET.DR. PO SCH (08:16)
[2020-05-04] MEDS: ASPIRIN ENTERIC COATED 81 MG TABLET.DR. PO SCH (08:16)
[2020-05-04] MEDS: DULoxetine HCL 30 MG CAPSULE.DR PO SCH (08:16)
[2020-05-04] MEDS: LISINOPRIL 20 MG TABLET PO SCH (08:19)
[2020-05-04 11:00] VITALS: BP 170/68
--- NOTE | 2020-05-04 11:10 | PDOC ---
PROGRESS NOTES Date of Service: DATE: 05/04/20 TIME: 11:10 Chief Complaint Chief Complaint mages: Images CXR IMPRESSION: * Interstitial and alveolar opacities bilaterally which could be from edema or infiltrate. * Obliquely oriented line near the right apex partially seen. Would favor that this is secondary to overlap of structures rather than pleural line from pneumothorax given the morphology. Assessment/Plan Chest pain concerning for NSTEMI, rule out ACS Acute hypoxic respiratory failure DLD Pacemaker placement Chest pain concerning for unstable angina/NSTEMI Troponin of [id number] HYPOKALEMIA PLAN ADMIT CVC BED Continue aspirin, consider Plavix if intermediate risk will defer this to cardiology Cardiology consulted for predischarge stress testing or left heart cath Continue nitroglycerin as needed for pain Continue beta-vishal if blood pressures allow Continue high intensity statins IV morphine as needed Consider Lovenox Maintain O2 sats between 88 to 95% Trend troponins Repeat EKG in the a.m. Continue telemetry monitoring Monitor for electrolyte abnormalities Avoid NSAIDs Heparin drip for DVT prophylaxis Protonix GI prophylaxis ADA diet Full code Discussed with RN and SW Disposition pending cardiology evaluation Surrogate decision maker is the daughter REPLACE K 05/04, CONSULT PULM , ECHO Justifications for Admission Justifications for Admission Other Justification History of Present Illness History of Present Illness History of Present Illness: HPI: Patient is an 80-year-old female with past medical history of pacemaker placement, dyslipidemia who comes in with shortness of breath and chest pain started a couple hours ago. Patient is a poor historian and is unsure why she has a pacemaker. Patient was saturating 80% on room air upon arrival. Patient describes the chest pain as pressure-like and there is associated diaphoresis. Pain does not radiate anywhere. There is no exacerbating or alleviating factors. Denies fevers, abdominal pain, diarrhea, dysuria, syncope, or palpitations. Past Medical/Surgical History: PMH/PSH: Pacemaker placement Dyslipidemia Allergies: Allergies: Coded Allergies: No Known Drug Allergies (Unverified , 05/03/20) Family History: Family History: Reviewed and none reported. Patient is a poor historian Social History: Social History: Denies alcohol, drug, was tobacco abuse Vitals Vitals Vital Signs Date Time Temp Pulse Resp B/P (MAP) Pulse Ox O2 Delivery O2 Flow Rate FiO2 05/04/20 11:00 83 18 170/68 (102) 93 Room Air 05/04/20 09:52 2.0 05/04/20 08:20 97.9 97.9 Physical Exam Physical Exam GEN: Minimal distress. Alert and oriented to self only. HEENT: Normal cephalic, atraumatic, EYES: Extraocular muscles are intact, pupil are equally round and reactive to light and accommodation MUSCULOSKELETAL: Well developed , well nourished, good range of motion ENDOCRINE: No thyromegaly was palpated LYMPHATICS: No cervical chain or axillary nodes were noted HEMATOPOIETIC: No bruising NECK: Supple, no JVD, no thyromegaly was noted LUNGS: Clear to auscultation in all lung adams without rhonchi or wheezing HEART: RRR, S!, S2 present. Peripheral pulses intact, no obvious murmurs noted ABDOMEN: Soft, nontender. Positive bowel sounds, no organomegaly, normal bowel sounds EXTREMITIES: Without clubbing, cyanosis, or edema. Pedal pulses intact. Negative Homans sign NEUROLOGIC: Normal speech and tone. A&O x 3, moves all extremities, no obvious focal deficits PSYCHIATRIC: Normal affect, normal mood. Stable SKIN: No ulcerations or rashes, good skin turgor, no jaundice VASCULAR: Good capillary refill, neurovascular bundle appears to be intact General: Alert, Cooperative, mild distress Heart: Regular rate Lungs: Clear Abdomen: Normal bowel sounds Labs LABS INDICATION: Reason: CP / Spl. Instructions: / History: COMPARISON: None. FINDINGS: Single view of chest obtained. Pacemaker is seen as well as mild prominence of cardiac silhouette. Interstitial and alveolar opacities bilaterally most severe at the lung bases. Obliquely oriented line near the right lung apex. IMPRESSION: * Interstitial and alveolar opacities bilaterally which could be from edema or infiltrate. * Obliquely oriented line near the right apex partially seen. Would favor that this is secondary to overlap of structures rather than pleural line from pneumothorax given the morphology. Electronically signed by: Carlos Logan MD (05/03/2020 4:34 AM) [id number] DICTATED and SIGNED BY: CARLOS LOGAN MD DATE: 05/03/20 0434 Laboratory Tests Test 05/03/20 14:10 05/03/20 17:45 05/03/20 22:52 05/04/20 05:09 Troponin I Quantitative 3.414 ng/mL (0.000-0.055) Heparin Anti-Xa Act, Unfractionated < 0.10 IU/mL (0.30-0.70) 0.59 IU/mL (0.30-0.70) 0.45 IU/mL (0.30-0.70) White Blood Count 6.5 x10^3/uL (4.0-11.0) Red Blood Count 3.06 x10^6/uL (3.50-5.40) Hemoglobin 11.1 g/dL (12.0-15.5) Hematocrit 32.5 % (36.0-47.0) Mean Corpuscular Volume 106 fL (79-100) Mean Corpuscular Hemoglobin 36 pg (25-35) Mean Corpuscular Hemoglobin Concent 34 g/dL (31-37) Red Cell Distribution Width 16.6 % (11.5-14.5) Platelet Count 167 x10^3/uL (140-400) Neutrophils (%) (Auto) 65 % (31-73) Lymphocytes (%) (Auto) 23 % (24-48) Monocytes (%) (Auto) 8 % (0-9) Eosinophils (%) (Auto) 1 % (0-3) Basophils (%) (Auto) 3 % (0-3) Neutrophils # (Auto) 4.2 x10^3/uL (1.8-7.7) Lymphocytes # (Auto) 1.5 x10^3/uL (1.0-4.8) Monocytes # (Auto) 0.5 x10^3/uL (0.0-1.1) Eosinophils # (Auto) 0.1 x10^3/uL (0.0-0.7) Basophils # (Auto) 0.2 x10^3/uL (0.0-0.2) Sodium Level 138 mmol/L (136-145) Potassium Level 3.1 mmol/L (3.5-5.1) Chloride Level 102 mmol/L (98-107) Carbon Dioxide Level 32 mmol/L (21-32) Anion Gap 4 (6-14) Blood Urea Nitrogen 12 mg/dL (7-20) Creatinine 0.7 mg/dL (0.6-1.0) Estimated GFR (Cockcroft-Gault) 80.1 Glucose Level 117 mg/dL (70-99) Calcium Level 8.5 mg/dL (8.5-10.1) Magnesium Level 1.8 mg/dL (1.8-2.4) Assessment and Plan Assessmemt and Plan Problems Medical Problems: (1) Abnormal EKG Status: Acute (2) History of pacemaker Status: Acute (3) Hyperlipidemia Status: Acute (4) Hypertension Status: Acute (5) NSTEMI (non-ST elevated myocardial infarction) Status: Acute Comment Review of Relevant I have reviewed the following items [place] (where applicable) has been applied. Labs Laboratory Tests Test 05/03/20 03:08 05/03/20 03:09 05/03/20 03:10 05/03/20 04:01 Glucose (Fingerstick) 274 mg/dL (70-99) White Blood Count 13.2 x10^3/uL (4.0-11.0) Red Blood Count 3.75 x10^6/uL (3.50-5.40) Hemoglobin 13.4 g/dL (12.0-15.5) Hematocrit 40.3 % (36.0-47.0) Mean Corpuscular Volume 108 fL (79-100) Mean Corpuscular Hemoglobin 36 pg (25-35) Mean Corpuscular Hemoglobin Concent 33 g/dL (31-37) Red Cell Distribution Width 16.6 % (11.5-14.5) Platelet Count 253 x10^3/uL (140-400) Neutrophils (%) (Auto) 81 % (31-73) Lymphocytes (%) (Auto) 13 % (24-48) Monocytes (%) (Auto) 3 % (0-9) Eosinophils (%) (Auto) 2 % (0-3) Basophils (%) (Auto) 1 % (0-3) Neutrophils # (Auto) 10.7 x10^3/uL (1.8-7.7) Lymphocytes # (Auto) 1.7 x10^3/uL (1.0-4.8) Monocytes # (Auto) 0.4 x10^3/uL (0.0-1.1) Eosinophils # (Auto) 0.2 x10^3/uL (0.0-0.7) Basophils # (Auto) 0.2 x10^3/uL (0.0-0.2) Sodium Level 139 mmol/L (136-145) Potassium Level 4.0 mmol/L (3.5-5.1) Chloride Level 102 mmol/L (98-107) Carbon Dioxide Level 28 mmol/L (21-32) Anion Gap 9 (6-14) Blood Urea Nitrogen 13 mg/dL (7-20) Creatinine 0.9 mg/dL (0.6-1.0) Estimated GFR (Cockcroft-Gault) 59.9 BUN/Creatinine Ratio 14 (6-20) Glucose Level 310 mg/dL (70-99) Hemoglobin A1c 5.0 % (4.8-5.6) Calcium Level 9.2 mg/dL (8.5-10.1) Total Bilirubin 1.1 mg/dL (0.2-1.0) Aspartate Amino Transf (AST/SGOT) 26 U/L (15-37) Alanine Aminotransferase (ALT/SGPT) 26 U/L (14-59) Alkaline Phosphatase 84 U/L (46-116) Troponin I Quantitative 0.388 ng/mL (0.000-0.055) WA-Ofk-T-Type Natriuretic Peptide 40398 pg/mL (0-449) Total Protein 7.7 g/dL (6.4-8.2) Albumin 3.3 g/dL (3.4-5.0) Albumin/Globulin Ratio 0.8 (1.0-1.7) Triglycerides Level 83 mg/dL (0-150) Cholesterol Level 153 mg/dL (0-200) LDL Cholesterol, Calculated 74 mg/dL (0-100) VLDL Cholesterol, Calculated 17 mg/dL (0-40) Non-HDL Cholesterol Calculated 91 mg/dL (0-129) HDL Cholesterol 62 mg/dL (40-60) Cholesterol/HDL Ratio 2.5 Bedside Troponin I 0.06 ng/ml (<0.08) Bedside Venous pH 7.36 (7.32-7.42) Bedside Venous pCO2 53 mmHg (41-51) Bedside Venous pO2 58 mmHg (20-40) Venous Blood HCO3 30 mmol/L (24-28) POC Venous O2 Saturation (Christine) 88 % Bedside FiO2 21.0 Test 05/03/20 07:53 05/03/20 07:56 05/03/20 10:45 05/03/20 14:10 Troponin I Quantitative 1.793 ng/mL (0.000-0.055) 3.414 ng/mL (0.000-0.055) SARS-CoV-2 Antigen (Rapid) Negative (NEGATIVE) Prothrombin Time 13.8 SEC (11.7-14.0) Prothromb Time International Ratio 1.1 (0.8-1.1) Activated Partial Thromboplast Time 131 SEC (24-38) Heparin Anti-Xa Act, Unfractionated 0.53 IU/mL (0.30-0.70) Test 05/03/20 17:45 05/03/20 22:52 05/04/20 05:09 Heparin Anti-Xa Act, Unfractionated < 0.10 IU/mL (0.30-0.70) 0.59 IU/mL (0.30-0.70) 0.45 IU/mL (0.30-0.70) White Blood Count 6.5 x10^3/uL (4.0-11.0) Red Blood Count 3.06 x10^6/uL (3.50-5.40) Hemoglobin 11.1 g/dL (12.0-15.5) Hematocrit 32.5 % (36.0-47.0) Mean Corpuscular Volume 106 fL (79-100) Mean Corpuscular Hemoglobin 36 pg (25-35) Mean Corpuscular Hemoglobin Concent 34 g/dL (31-37) Red Cell Distribution Width 16.6 % (11.5-14.5) Platelet Count 167 x10^3/uL (140-400) Neutrophils (%) (Auto) 65 % (31-73) Lymphocytes (%) (Auto) 23 % (24-48) Monocytes (%) (Auto) 8 % (0-9) Eosinophils (%) (Auto) 1 % (0-3) Basophils (%) (Auto) 3 % (0-3) Neutrophils # (Auto) 4.2 x10^3/uL (1.8-7.7) Lymphocytes # (Auto) 1.5 x10^3/uL (1.0-4.8) Monocytes # (Auto) 0.5 x10^3/uL (0.0-1.1) Eosinophils # (Auto) 0.1 x10^3/uL (0.0-0.7) Basophils # (Auto) 0.2 x10^3/uL (0.0-0.2) Sodium Level 138 mmol/L (136-145) Potassium Level 3.1 mmol/L (3.5-5.1) Chloride Level 102 mmol/L (98-107) Carbon Dioxide Level 32 mmol/L (21-32) Anion Gap 4 (6-14) Blood Urea Nitrogen 12 mg/dL (7-20) Creatinine 0.7 mg/dL (0.6-1.0) Estimated GFR (Cockcroft-Gault) 80.1 Glucose Level 117 mg/dL (70-99) Calcium Level 8.5 mg/dL (8.5-10.1) Magnesium Level 1.8 mg/dL (1.8-2.4) Laboratory Tests Test 05/03/20 14:10 05/03/20 17:45 05/03/20 22:52 05/04/20 05:09 Troponin I Quantitative 3.414 ng/mL (0.000-0.055) Heparin Anti-Xa Act, Unfractionated < 0.10 IU/mL (0.30-0.70) 0.59 IU/mL (0.30-0.70) 0.45 IU/mL (0.30-0.70) White Blood Count 6.5 x10^3/uL (4.0-11.0) Red Blood Count 3.06 x10^6/uL (3.50-5.40) Hemoglobin 11.1 g/dL (12.0-15.5) Hematocrit 32.5 % (36.0-47.0) Mean Corpuscular Volume 106 fL (79-100) Mean Corpuscular Hemoglobin 36 pg (25-35) Mean Corpuscular Hemoglobin Concent 34 g/dL (31-37) Red Cell Distribution Width 16.6 % (11.5-14.5) Platelet Count 167 x10^3/uL (140-400) Neutrophils (%) (Auto) 65 % (31-73) Lymphocytes (%) (Auto) 23 % (24-48) Monocytes (%) (Auto) 8 % (0-9) Eosinophils (%) (Auto) 1 % (0-3) Basophils (%) (Auto) 3 % (0-3) Neutrophils # (Auto) 4.2 x10^3/uL (1.8-7.7) Lymphocytes # (Auto) 1.5 x10^3/uL (1.0-4.8) Monocytes # (Auto) 0.5 x10^3/uL (0.0-1.1) Eosinophils # (Auto) 0.1 x10^3/uL (0.0-0.7) Basophils # (Auto) 0.2 x10^3/uL (0.0-0.2) Sodium Level 138 mmol/L (136-145) Potassium Level 3.1 mmol/L (3.5-5.1) Chloride Level 102 mmol/L (98-107) Carbon Dioxide Level 32 mmol/L (21-32) Anion Gap 4 (6-14) Blood Urea Nitrogen 12 mg/dL (7-20) Creatinine 0.7 mg/dL (0.6-1.0) Estimated GFR (Cockcroft-Gault) 80.1 Glucose Level 117 mg/dL (70-99) Calcium Level 8.5 mg/dL (8.5-10.1) Magnesium Level 1.8 mg/dL (1.8-2.4) Medications Current Medications Ringer's Solution 1,000 ml @ 1,000 mls/hr 1X ONCE IV Last administered on at 03:46; Start 05/03/20 at 04:00; Stop 05/03/20 at 04:59; Status DC Nitroglycerin (Nitrostat) 0.4 mg PRN Q5MIN PRN SL CHEST PAIN Last administered on 05/03/20at 03:25; Start 05/03/20 at 03:15 Heparin Sodium (Porcine) (Heparin Sodium) 4,000 unit 1X ONCE IV Last administered on 05/03/20at 03:33; Start 05/03/20 at 04:00; Stop 05/03/20 at 04:01; Status DC Heparin Sodium/ Dextrose 250 ml @ 0 mls/hr 1X ONCE IV Last administered on 05/03/20at 03:43; Start 05/03/20 at 04:00; Stop 05/03/20 at 04:01; Status DC Fentanyl Citrate (Fentanyl 2ml Vial) 50 mcg 1X ONCE IVP ; Start 05/03/20 at 04:30; Stop 05/03/20 at 04:31; Status DC Iohexol (Omnipaque 350 Mg/ml) 70 ml 1X ONCE IV ; Start 05/03/20 at 04:30; Stop 05/03/20 at 04:31; Status DC Info (CONTRAST GIVEN -- Rx MONITORING) 1 each PRN DAILY PRN MC SEE COMMENTS; Start 05/03/20 at 04:00; Stop 05/05/20 at 03:59 Aspirin (Aspirin Chewable) 324 mg 1X ONCE PO Last administered on 05/03/20at 04:15; Start 05/03/20 at 04:30; Stop 05/03/20 at 04:31; Status DC Ondansetron HCl (Zofran) 4 mg PRN Q8HRS PRN IV NAUSEA/VOMITING 1ST CHOICE; Start 05/03/20 at 04:15; Stop 05/03/20 at 15:32; Status DC Morphine Sulfate (Morphine Sulfate) 4 mg PRN Q2HR PRN IV SEVERE PAIN 7-10; Start 05/03/20 at 04:15; Stop 05/04/20 at 04:14; Status DC Heparin Sodium/ Dextrose 250 ml @ 8.34 mls/hr ONCE ONCE IV Last administered on 05/03/20at 12:56; Start 05/03/20 at 04:00; Stop 05/04/20 at 09:58; Status DC Ondansetron HCl (Zofran) 4 mg PRN Q6HRS PRN IVP NAUSEA/VOMITING; Start 05/03/20 at 15:30 Pantoprazole Sodium (Protonix) 40 mg DAILYAC PO Last administered on 05/04/20at 08:16; Start 05/04/20 at 07:30 Furosemide (Lasix) 40 mg 1X ONCE IVP Last administered on 05/03/20at 16:13; Start 05/03/20 at 16:15; Stop 05/03/20 at 16:16; Status DC Lorazepam (Ativan) 0.5 mg PRN Q2HR PRN PO ANXIETY / AGITATION; Start 05/03/20 at 17:15; Status Cancel Lorazepam (Ativan Inj) 0.5 mg PRN Q2HR PRN IVP ANXIETY / AGITATION Last administered on 05/03/20 17:24; Start 05/03/20 at 17:30 Heparin Sodium/ Dextrose 250 ml @ 8.34 mls/hr CONT PRN IV PER PROTOCOL Last administered on 05/04/20 07:19; Start 05/03/20 at 19:30 Heparin Sodium (Porcine) (Heparin Sodium) 1,750 unit PRN Q6HRS PRN IV FOR UFH LEVEL LESS THAN 0.2 Last administered on 05/03/20at 19:54; Start 05/03/20 at 19:30 Acetaminophen (Tylenol) 650 mg PRN DAILY PRN PO MILD pain or fever Last administered on 05/03/20 23:08; Start 05/03/20 at 23:00 Aspirin (Ecotrin) 81 mg DAILY PO Last administered on 05/04/20 08:16; Start 05/04/20 at 09:00 Atorvastatin Calcium (Lipitor) 40 mg QHS PO ; Start 05/04/20 at 21:00 Duloxetine HCl (Cymbalta) 30 mg DAILY PO Last administered on 05/04/20at 08:16; Start 05/04/20 at 09:00 Lisinopril (Prinivil) 40 mg DAILY PO Last administered on 05/04/20 08:19; Start 05/04/20 at 09:00 Cyclobenzaprine HCl (Flexeril) 5 mg QHS PO Last administered on 05/03/20at 23:08; Start 05/03/20 at 23:00 Trazodone HCl (Desyrel) 150 mg QHS PO Last administered on 05/03/20at 23:08; Start 05/03/20 at 23:00 Active Scripts Active Reported Trazodone Hcl 150 Mg Tablet 1 Tab PO QHS 30 Days Sotalol (Sotalol Hcl) 80 Mg Tablet 1 Tab PO BID Lisinopril 40 Mg Tablet 1 Tab PO DAILY Fish Oil 1,000 Mg Softgel ([place]-3 Fatty Acids/Fish Oil) 1 Each Capsule 1 Cap PO DAILY 30 Days Duloxetine Hcl 30 Mg Capsule.dr 30 Mg PO DAILY Ergocalciferol (Ergocalciferol (Vitamin D2)) 200 Mcg/1 Ml Drops 200 Mcg PO Cyclobenzaprine Hcl 5 Mg Tablet 1 Tab PO QHS D3-50 (Cholecalciferol (Vitamin D3)) 50,000 Unit Capsule 1 Cap PO WEEKLY 28 Days Atorvastatin Calcium 40 Mg Tablet 1 Tab PO DAILY Aspirin Ec (Aspirin) 81 Mg Tablet.dr 1 Tab PO DAILY Ascorbic Acid 500 Mg Tablet 500 Mg PO Acetaminophen 325 Mg Tablet 2 Tab PO PRN DAILY PRN 30 Days Vitals/I & O Vital Sign - Last 24 Hours 05/03/20 05/03/20 05/03/20 05/03/20 12:47 13:17 13:47 14:47 Pulse 88 90 94 90 Resp 22 20 21 18 B/P (MAP) 146/86 (106) 209/83 (125) 163/87 (112) 219/101 (140) Pulse Ox 97 94 94 96 O2 Delivery Nasal Cannula Nasal Cannula Nasal Cannula Nasal Cannula O2 Flow Rate 2.0 2.0 2.0 2.0 05/03/20 05/03/20 05/03/20 05/03/20 15:17 15:43 15:47 16:17 Pulse 88 90 90 88 B/P (MAP) 209/91 (130) 190/92 (124) 185/87 (119) 155/67 (96) Pulse Ox 98 98 95 95 O2 Delivery Nasal Cannula Nasal Cannula Nasal Cannula Nasal Cannula O2 Flow Rate 2.0 2.0 2.0 2.0 05/03/20 05/03/20 05/03/20 05/03/20 17:00 17:17 19:33 19:47 Pulse 90 98 80 B/P (MAP) 146/95 (112) 195/79 (117) 191/77 (115) 169/75 (106) Pulse Ox 95 96 97 O2 Delivery Nasal Cannula Nasal Cannula Nasal Cannula Nasal Cannula O2 Flow Rate 2.0 2.0 2.0 2.0 05/03/20 05/03/20 05/03/20 05/04/20 20:50 22:44 23:19 05:00 Temp 98.1 97.7 97.5 98.1 97.7 97.5 Pulse 87 88 77 Resp 18 18 14 B/P (MAP) 146/85 (105) 155/53 (87) 136/55 (82) Pulse Ox 93 96 97 O2 Delivery Nasal Cannula Nasal Cannula Nasal Cannula O2 Flow Rate 2.0 2.0 2.0 2.0 05/04/20 05/04/20 05/04/20 05/04/20 07:23 07:57 08:19 08:20 Temp 97.9 97.9 Pulse 80 80 Resp 18 B/P (MAP) 160/62 (94) 160/62 Pulse Ox 94 O2 Delivery Nasal Cannula Nasal Cannula O2 Flow Rate 2.0 2.0 05/04/20 05/04/20 09:52 11:00 Pulse 83 Resp 18 B/P (MAP) 170/68 (102) Pulse Ox 93 O2 Delivery Nasal Cannula Room Air O2 Flow Rate 2.0 Intake and Output 05/03/20 05/03/20 05/04/20 15:00 23:00 07:00 Intake Total 350 ml Output Total 275 ml Balance -275 ml 350 ml Justicifation of Admission Dx: Justifications for Admission: Justification of Admission Dx: Yes Angina: [place] Worsening of Sym NV: Acute NSTEMI DEB HANCOCK MD May 04, 2020 11:10
--- NOTE | 2020-05-04 11:16 | EKG ---
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
--- NOTE | 2020-05-04 11:25 | EKG ---
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
[2020-05-04] MEDS ORDERED: POTASSIUM CHLORIDE 20 MEQ TABLET.ER. PO ONE (11:30)
--- NOTE | 2020-05-04 12:29 | NUR ---
SS following for discharge planning. SS reviewed pt chart and discussed with pt RN. Pt is from home and is currently requiring oxygen. Cardiology consulted. ECHO today. Pt on Heparin drip. SS will continue to follow for discharge planning.
--- NOTE | 2020-05-04 13:26 | EKG ---
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
[2020-05-04 15:00] VITALS: BP 136/53
--- NOTE | 2020-05-04 16:01 | PDOC ---
PULMONARY PROGRESS NOTES DATE: 05/04/20 TIME: 16:00 Vitals Vital Signs Date Time Temp Pulse Resp B/P (MAP) Pulse Ox O2 Delivery O2 Flow Rate FiO2 05/04/20 15:00 97.9 80 18 136/53 (80) 91 Room Air 97.9 05/04/20 09:52 2.0 Labs Laboratory Tests Test 05/03/20 03:03 05/03/20 03:08 05/03/20 03:09 05/03/20 03:10 Coronavirus (PCR) Not detected (Not Detected) Glucose (Fingerstick) 274 mg/dL (70-99) White Blood Count 13.2 x10^3/uL (4.0-11.0) Red Blood Count 3.75 x10^6/uL (3.50-5.40) Hemoglobin 13.4 g/dL (12.0-15.5) Hematocrit 40.3 % (36.0-47.0) Mean Corpuscular Volume 108 fL (79-100) Mean Corpuscular Hemoglobin 36 pg (25-35) Mean Corpuscular Hemoglobin Concent 33 g/dL (31-37) Red Cell Distribution Width 16.6 % (11.5-14.5) Platelet Count 253 x10^3/uL (140-400) Neutrophils (%) (Auto) 81 % (31-73) Lymphocytes (%) (Auto) 13 % (24-48) Monocytes (%) (Auto) 3 % (0-9) Eosinophils (%) (Auto) 2 % (0-3) Basophils (%) (Auto) 1 % (0-3) Neutrophils # (Auto) 10.7 x10^3/uL (1.8-7.7) Lymphocytes # (Auto) 1.7 x10^3/uL (1.0-4.8) Monocytes # (Auto) 0.4 x10^3/uL (0.0-1.1) Eosinophils # (Auto) 0.2 x10^3/uL (0.0-0.7) Basophils # (Auto) 0.2 x10^3/uL (0.0-0.2) Sodium Level 139 mmol/L (136-145) Potassium Level 4.0 mmol/L (3.5-5.1) Chloride Level 102 mmol/L (98-107) Carbon Dioxide Level 28 mmol/L (21-32) Anion Gap 9 (6-14) Blood Urea Nitrogen 13 mg/dL (7-20) Creatinine 0.9 mg/dL (0.6-1.0) Estimated GFR (Cockcroft-Gault) 59.9 BUN/Creatinine Ratio 14 (6-20) Glucose Level 310 mg/dL (70-99) Hemoglobin A1c 5.0 % (4.8-5.6) Calcium Level 9.2 mg/dL (8.5-10.1) Total Bilirubin 1.1 mg/dL (0.2-1.0) Aspartate Amino Transf (AST/SGOT) 26 U/L (15-37) Alanine Aminotransferase (ALT/SGPT) 26 U/L (14-59) Alkaline Phosphatase 84 U/L (46-116) Troponin I Quantitative 0.388 ng/mL (0.000-0.055) FD-Kwl-Z-Type Natriuretic Peptide 11001 pg/mL (0-449) Total Protein 7.7 g/dL (6.4-8.2) Albumin 3.3 g/dL (3.4-5.0) Albumin/Globulin Ratio 0.8 (1.0-1.7) Triglycerides Level 83 mg/dL (0-150) Cholesterol Level 153 mg/dL (0-200) LDL Cholesterol, Calculated 74 mg/dL (0-100) VLDL Cholesterol, Calculated 17 mg/dL (0-40) Non-HDL Cholesterol Calculated 91 mg/dL (0-129) HDL Cholesterol 62 mg/dL (40-60) Cholesterol/HDL Ratio 2.5 Bedside Troponin I 0.06 ng/ml (<0.08) Test 05/03/20 04:01 05/03/20 07:53 05/03/20 07:56 05/03/20 10:45 Bedside Venous pH 7.36 (7.32-7.42) Bedside Venous pCO2 53 mmHg (41-51) Bedside Venous pO2 58 mmHg (20-40) Venous Blood HCO3 30 mmol/L (24-28) POC Venous O2 Saturation (Christine) 88 % Bedside FiO2 21.0 Troponin I Quantitative 1.793 ng/mL (0.000-0.055) SARS-CoV-2 Antigen (Rapid) Negative (NEGATIVE) Prothrombin Time 13.8 SEC (11.7-14.0) Prothromb Time International Ratio 1.1 (0.8-1.1) Activated Partial Thromboplast Time 131 SEC (24-38) Heparin Anti-Xa Act, Unfractionated 0.53 IU/mL (0.30-0.70) Test 05/03/20 14:10 05/03/20 17:45 05/03/20 22:52 05/04/20 05:09 Troponin I Quantitative 3.414 ng/mL (0.000-0.055) Heparin Anti-Xa Act, Unfractionated < 0.10 IU/mL (0.30-0.70) 0.59 IU/mL (0.30-0.70) 0.45 IU/mL (0.30-0.70) White Blood Count 6.5 x10^3/uL (4.0-11.0) Red Blood Count 3.06 x10^6/uL (3.50-5.40) Hemoglobin 11.1 g/dL (12.0-15.5) Hematocrit 32.5 % (36.0-47.0) Mean Corpuscular Volume 106 fL (79-100) Mean Corpuscular Hemoglobin 36 pg (25-35) Mean Corpuscular Hemoglobin Concent 34 g/dL (31-37) Red Cell Distribution Width 16.6 % (11.5-14.5) Platelet Count 167 x10^3/uL (140-400) Neutrophils (%) (Auto) 65 % (31-73) Lymphocytes (%) (Auto) 23 % (24-48) Monocytes (%) (Auto) 8 % (0-9) Eosinophils (%) (Auto) 1 % (0-3) Basophils (%) (Auto) 3 % (0-3) Neutrophils # (Auto) 4.2 x10^3/uL (1.8-7.7) Lymphocytes # (Auto) 1.5 x10^3/uL (1.0-4.8) Monocytes # (Auto) 0.5 x10^3/uL (0.0-1.1) Eosinophils # (Auto) 0.1 x10^3/uL (0.0-0.7) Basophils # (Auto) 0.2 x10^3/uL (0.0-0.2) Sodium Level 138 mmol/L (136-145) Potassium Level 3.1 mmol/L (3.5-5.1) Chloride Level 102 mmol/L (98-107) Carbon Dioxide Level 32 mmol/L (21-32) Anion Gap 4 (6-14) Blood Urea Nitrogen 12 mg/dL (7-20) Creatinine 0.7 mg/dL (0.6-1.0) Estimated GFR (Cockcroft-Gault) 80.1 Glucose Level 117 mg/dL (70-99) Calcium Level 8.5 mg/dL (8.5-10.1) Magnesium Level 1.8 mg/dL (1.8-2.4) Laboratory Tests Test 05/03/20 17:45 05/03/20 22:52 05/04/20 05:09 Heparin Anti-Xa Act, Unfractionated < 0.10 IU/mL (0.30-0.70) 0.59 IU/mL (0.30-0.70) 0.45 IU/mL (0.30-0.70) White Blood Count 6.5 x10^3/uL (4.0-11.0) Red Blood Count 3.06 x10^6/uL (3.50-5.40) Hemoglobin 11.1 g/dL (12.0-15.5) Hematocrit 32.5 % (36.0-47.0) Mean Corpuscular Volume 106 fL (79-100) Mean Corpuscular Hemoglobin 36 pg (25-35) Mean Corpuscular Hemoglobin Concent 34 g/dL (31-37) Red Cell Distribution Width 16.6 % (11.5-14.5) Platelet Count 167 x10^3/uL (140-400) Neutrophils (%) (Auto) 65 % (31-73) Lymphocytes (%) (Auto) 23 % (24-48) Monocytes (%) (Auto) 8 % (0-9) Eosinophils (%) (Auto) 1 % (0-3) Basophils (%) (Auto) 3 % (0-3) Neutrophils # (Auto) 4.2 x10^3/uL (1.8-7.7) Lymphocytes # (Auto) 1.5 x10^3/uL (1.0-4.8) Monocytes # (Auto) 0.5 x10^3/uL (0.0-1.1) Eosinophils # (Auto) 0.1 x10^3/uL (0.0-0.7) Basophils # (Auto) 0.2 x10^3/uL (0.0-0.2) Sodium Level 138 mmol/L (136-145) Potassium Level 3.1 mmol/L (3.5-5.1) Chloride Level 102 mmol/L (98-107) Carbon Dioxide Level 32 mmol/L (21-32) Anion Gap 4 (6-14) Blood Urea Nitrogen 12 mg/dL (7-20) Creatinine 0.7 mg/dL (0.6-1.0) Estimated GFR (Cockcroft-Gault) 80.1 Glucose Level 117 mg/dL (70-99) Calcium Level 8.5 mg/dL (8.5-10.1) Magnesium Level 1.8 mg/dL (1.8-2.4) Medications Active Scripts Medications Dose Route/Sig Max Daily Dose Days Date Category Trazodone Hcl 150 Mg Tablet 1 Tab PO QHS 30 05/03/20 Reported Sotalol (Sotalol Hcl) 80 Mg Tablet 1 Tab PO BID 05/03/20 Reported Lisinopril 40 Mg Tablet 1 Tab PO DAILY 05/03/20 Reported Fish Oil 1,000 Mg Softgel ([place]-3 Fatty Acids/Fish Oil) 1 Each Capsule 1 Cap PO DAILY 30 05/03/20 Reported Duloxetine Hcl 30 Mg Capsule.dr 30 Mg PO DAILY 05/03/20 Reported Ergocalciferol (Ergocalciferol (Vitamin D2)) 200 Mcg/1 Ml Drops 200 Mcg PO 05/03/20 Reported Cyclobenzaprine Hcl 5 Mg Tablet 1 Tab PO QHS 05/03/20 Reported D3-50 (Cholecalciferol (Vitamin D3)) 50,000 Unit Capsule 1 Cap PO WEEKLY 28 05/03/20 Reported Atorvastatin Calcium 40 Mg Tablet 1 Tab PO DAILY 05/03/20 Reported Aspirin Ec (Aspirin) 81 Mg Tablet.dr 1 Tab PO DAILY 05/03/20 Reported Ascorbic Acid 500 Mg Tablet 500 Mg PO 05/03/20 Reported Acetaminophen 325 Mg Tablet 2 Tab PO PRN DAILY PRN 30 05/03/20 Reported Impression . Full note dictated acute hypoxemic respiratory failure secondary to acute systolic heart failure possible diastolic along with non-ST segment elevation CT Chest x-ray compatible with CHF not pneumonia RACHELE EVANS MD May 04, 2020 16:01
--- NOTE | 2020-05-04 16:32 | CARD ---
MR#: [id number] Date of Study: 05/04/2020 Ordering Physician: ISABELLA LANIER, Referring Physician: ISABELLA LANIER, Tech: Candace Ramirez [facility] APPROVED REPORT EXAM: Two-dimensional and M-mode echocardiogram with Doppler and color Doppler. Other Information Quality : Good INDICATION Congestive Heart Failure Pacemaker RISK FACTORS Hypertension Hyperlipidemia 2D DIMENSIONS RVDd2.6 (2.9-3.5cm)Left Atrium(2D)4.4 (1.6-4.0cm) IVSd1.5 (0.7-1.1cm)Aortic Root(2D)2.9 (2.0-3.7cm) LVDd5.6 (3.9-5.9cm)LVOT Diameter2.1 (1.8-2.4cm) PWd1.2 (0.7-1.1cm)LVDs4.3 (2.5-4.0cm) FS (%) 23.7 %SV72.8 ml LVEF(%)40.0 (>50%) Aortic Valve AoV Peak Kevyn.163.0cm/sAoV VTI29.8cm AO Peak GR.10.6mmHgLVOT VTI 19.40cm AO Mean GR.6mmHgAVA (VTI)2.30cm2 Mitral Valve MV E Wzoecgtz76.4cm/sMV DECEL [id number] MV A Aqschdwi948.5cm/sE/A Ratio0.6 TDI Lateral E' P. V3.93cm/sMedial E' P. V4.51cm/s E/Lateral E'15.4E/Medial E'13.4 Tricuspid Valve TR P. Vhgxjrzo788ye/sRAP [id number] TR Peak Gr.63oeZbEBMU67iuQz Pulmonary Vein S1 Noxbirhc44.3cm/sS2 Jluqrhwe72.46cm/s D2 Zulhcymj89.5cm/s LEFT VENTRICLE The left ventricle is normal size. There is mild concentric left ventricular hypertrophy. Left ventri loreta systolic function is moderately impaired. The Ejection Fraction is 35-40%. Apical motion consiste nt with pacemaker activation. There is moderate to severe hypokinesis in the apex wall. Transmitral D oppler flow pattern is Grade I-abnormal relaxation pattern. RIGHT VENTRICLE The right ventricle is normal size. The right ventricular systolic function is normal. There is a pac emaker lead in the right ventricle. ATRIA The left atrium is mildly dilated. The right atrium size is normal. A pacemaker is seen in the right atrium consistent with history. The interatrial septum is intact with no evidence for an atrial septa l defect or patent foramen ovale as noted on 2-D or Doppler imaging. AORTIC VALVE The aortic valve is calcified but opens well. Doppler and Color Flow revealed no significant aortic r egurgitation. There is no significant aortic valvular stenosis. MITRAL VALVE The mitral valve is normal in structure and function. There is no evidence of mitral valve prolapse. There is no mitral valve stenosis. Doppler and Color-flow revealed mild mitral regurgitation. TRICUSPID VALVE The tricuspid valve is normal in structure and function. Doppler and Color Flow revealed trace tricus pid regurgitation. The PA pressure was estimated at 36 mmHg. There is no tricuspid valve stenosis. PULMONIC VALVE The pulmonic valve is not well visualized. Doppler and Color Flow revealed no pulmonic valvular regur gitation. There is no pulmonic valvular stenosis. GREAT VESSELS The aortic root is normal in size. The ascending aorta is not well seen. The IVC is normal in size an d collapses >50% with inspiration. PERICARDIAL EFFUSION There is no evidence of significant pericardial effusion. Critical Notification Critical Value: No <Conclusion> The left ventricle is normal size. Left ventricle systolic function is moderately impaired. The Ejection Fraction is 35-40%. Apical motion consistent with pacemaker activation. There is moderate to severe hypokinesis in the apex wall. There is mild concentric left ventricular hypertrophy. Doppler and Color Flow revealed no significant aortic regurgitation. There is no significant aortic valvular stenosis. Doppler and Color-flow revealed mild mitral regurgitation. Doppler and Color Flow revealed trace tricuspid regurgitation. The PA pressure was estimated at 36 mmHg. Signed by : Isabella Lanier MD Electronically Approved : 05/04/2020 16:32:24
--- NOTE | 2020-05-04 16:56 | PDOC ---
PROGRESS NOTES Date of Service DATE: 05/04/20 TIME: 16:53 Subjective Subjective Patient seen and examined Objective Objective Vital Signs Date Time Temp Pulse Resp B/P (MAP) Pulse Ox O2 Delivery O2 Flow Rate FiO2 05/04/20 15:00 97.9 80 18 136/53 (80) 91 Room Air 97.9 05/04/20 09:52 2.0 Intake and Output 05/04/20 07:00 Intake Total 350 ml Output Total 275 ml Balance 75 ml Intake Oral 350 ml Output Urine Total 275 ml Physical Exam Abdomen: Normal bowel sounds Heart: Regular rate General: No acute distress Lungs: Other (Mildly decreased breath sounds) Assessment Assessment Problems Medical Problems: (1) Abnormal EKG Status: Acute (2) History of pacemaker Status: Acute (3) Hyperlipidemia Status: Acute (4) Hypertension Status: Acute (5) NSTEMI (non-ST elevated myocardial infarction) Status: Acute 1. Non-ST elevated myocardial infarction. Peak troponin of 3.4. Rhythm stable overnight. Continue is on heparin and aspirin. Patient is pain-free today. She is unable to give any further history. Have requested records from [place]. Will check an echocardiogram today. Once records are available we will have a family discussion regarding options for the patient's treatment. Of note she has been made a DNR. 2. Respiratory failure probably secondary to heart failure. Improved today. Echocardiogram pending. Continue diuresis. 3. Permanent pacemaker. Awaiting records. Will interrogate the device. 4. Reported hyperlipidemia. Lab pending. Comment Review of Relevant I have reviewed the following items [place] (where applicable) has been applied. Labs Laboratory Tests Test 05/03/20 03:03 05/03/20 03:08 05/03/20 03:09 05/03/20 03:10 Coronavirus (PCR) Not detected (Not Detected) Glucose (Fingerstick) 274 mg/dL (70-99) White Blood Count 13.2 x10^3/uL (4.0-11.0) Red Blood Count 3.75 x10^6/uL (3.50-5.40) Hemoglobin 13.4 g/dL (12.0-15.5) Hematocrit 40.3 % (36.0-47.0) Mean Corpuscular Volume 108 fL (79-100) Mean Corpuscular Hemoglobin 36 pg (25-35) Mean Corpuscular Hemoglobin Concent 33 g/dL (31-37) Red Cell Distribution Width 16.6 % (11.5-14.5) Platelet Count 253 x10^3/uL (140-400) Neutrophils (%) (Auto) 81 % (31-73) Lymphocytes (%) (Auto) 13 % (24-48) Monocytes (%) (Auto) 3 % (0-9) Eosinophils (%) (Auto) 2 % (0-3) Basophils (%) (Auto) 1 % (0-3) Neutrophils # (Auto) 10.7 x10^3/uL (1.8-7.7) Lymphocytes # (Auto) 1.7 x10^3/uL (1.0-4.8) Monocytes # (Auto) 0.4 x10^3/uL (0.0-1.1) Eosinophils # (Auto) 0.2 x10^3/uL (0.0-0.7) Basophils # (Auto) 0.2 x10^3/uL (0.0-0.2) Sodium Level 139 mmol/L (136-145) Potassium Level 4.0 mmol/L (3.5-5.1) Chloride Level 102 mmol/L (98-107) Carbon Dioxide Level 28 mmol/L (21-32) Anion Gap 9 (6-14) Blood Urea Nitrogen 13 mg/dL (7-20) Creatinine 0.9 mg/dL (0.6-1.0) Estimated GFR (Cockcroft-Gault) 59.9 BUN/Creatinine Ratio 14 (6-20) Glucose Level 310 mg/dL (70-99) Hemoglobin A1c 5.0 % (4.8-5.6) Calcium Level 9.2 mg/dL (8.5-10.1) Total Bilirubin 1.1 mg/dL (0.2-1.0) Aspartate Amino Transf (AST/SGOT) 26 U/L (15-37) Alanine Aminotransferase (ALT/SGPT) 26 U/L (14-59) Alkaline Phosphatase 84 U/L (46-116) Troponin I Quantitative 0.388 ng/mL (0.000-0.055) YP-Xux-E-Type Natriuretic Peptide 94082 pg/mL (0-449) Total Protein 7.7 g/dL (6.4-8.2) Albumin 3.3 g/dL (3.4-5.0) Albumin/Globulin Ratio 0.8 (1.0-1.7) Triglycerides Level 83 mg/dL (0-150) Cholesterol Level 153 mg/dL (0-200) LDL Cholesterol, Calculated 74 mg/dL (0-100) VLDL Cholesterol, Calculated 17 mg/dL (0-40) Non-HDL Cholesterol Calculated 91 mg/dL (0-129) HDL Cholesterol 62 mg/dL (40-60) Cholesterol/HDL Ratio 2.5 Bedside Troponin I 0.06 ng/ml (<0.08) Test 05/03/20 04:01 05/03/20 07:53 05/03/20 07:56 05/03/20 10:45 Bedside Venous pH 7.36 (7.32-7.42) Bedside Venous pCO2 53 mmHg (41-51) Bedside Venous pO2 58 mmHg (20-40) Venous Blood HCO3 30 mmol/L (24-28) POC Venous O2 Saturation (Christine) 88 % Bedside FiO2 21.0 Troponin I Quantitative 1.793 ng/mL (0.000-0.055) SARS-CoV-2 Antigen (Rapid) Negative (NEGATIVE) Prothrombin Time 13.8 SEC (11.7-14.0) Prothromb Time International Ratio 1.1 (0.8-1.1) Activated Partial Thromboplast Time 131 SEC (24-38) Heparin Anti-Xa Act, Unfractionated 0.53 IU/mL (0.30-0.70) Test 05/03/20 14:10 05/03/20 17:45 05/03/20 22:52 05/04/20 05:09 Troponin I Quantitative 3.414 ng/mL (0.000-0.055) Heparin Anti-Xa Act, Unfractionated < 0.10 IU/mL (0.30-0.70) 0.59 IU/mL (0.30-0.70) 0.45 IU/mL (0.30-0.70) White Blood Count 6.5 x10^3/uL (4.0-11.0) Red Blood Count 3.06 x10^6/uL (3.50-5.40) Hemoglobin 11.1 g/dL (12.0-15.5) Hematocrit 32.5 % (36.0-47.0) Mean Corpuscular Volume 106 fL (79-100) Mean Corpuscular Hemoglobin 36 pg (25-35) Mean Corpuscular Hemoglobin Concent 34 g/dL (31-37) Red Cell Distribution Width 16.6 % (11.5-14.5) Platelet Count 167 x10^3/uL (140-400) Neutrophils (%) (Auto) 65 % (31-73) Lymphocytes (%) (Auto) 23 % (24-48) Monocytes (%) (Auto) 8 % (0-9) Eosinophils (%) (Auto) 1 % (0-3) Basophils (%) (Auto) 3 % (0-3) Neutrophils # (Auto) 4.2 x10^3/uL (1.8-7.7) Lymphocytes # (Auto) 1.5 x10^3/uL (1.0-4.8) Monocytes # (Auto) 0.5 x10^3/uL (0.0-1.1) Eosinophils # (Auto) 0.1 x10^3/uL (0.0-0.7) Basophils # (Auto) 0.2 x10^3/uL (0.0-0.2) Sodium Level 138 mmol/L (136-145) Potassium Level 3.1 mmol/L (3.5-5.1) Chloride Level 102 mmol/L (98-107) Carbon Dioxide Level 32 mmol/L (21-32) Anion Gap 4 (6-14) Blood Urea Nitrogen 12 mg/dL (7-20) Creatinine 0.7 mg/dL (0.6-1.0) Estimated GFR (Cockcroft-Gault) 80.1 Glucose Level 117 mg/dL (70-99) Calcium Level 8.5 mg/dL (8.5-10.1) Magnesium Level 1.8 mg/dL (1.8-2.4) Laboratory Tests Test 05/03/20 17:45 05/03/20 22:52 05/04/20 05:09 Heparin Anti-Xa Act, Unfractionated < 0.10 IU/mL (0.30-0.70) 0.59 IU/mL (0.30-0.70) 0.45 IU/mL (0.30-0.70) White Blood Count 6.5 x10^3/uL (4.0-11.0) Red Blood Count 3.06 x10^6/uL (3.50-5.40) Hemoglobin 11.1 g/dL (12.0-15.5) Hematocrit 32.5 % (36.0-47.0) Mean Corpuscular Volume 106 fL (79-100) Mean Corpuscular Hemoglobin 36 pg (25-35) Mean Corpuscular Hemoglobin Concent 34 g/dL (31-37) Red Cell Distribution Width 16.6 % (11.5-14.5) Platelet Count 167 x10^3/uL (140-400) Neutrophils (%) (Auto) 65 % (31-73) Lymphocytes (%) (Auto) 23 % (24-48) Monocytes (%) (Auto) 8 % (0-9) Eosinophils (%) (Auto) 1 % (0-3) Basophils (%) (Auto) 3 % (0-3) Neutrophils # (Auto) 4.2 x10^3/uL (1.8-7.7) Lymphocytes # (Auto) 1.5 x10^3/uL (1.0-4.8) Monocytes # (Auto) 0.5 x10^3/uL (0.0-1.1) Eosinophils # (Auto) 0.1 x10^3/uL (0.0-0.7) Basophils # (Auto) 0.2 x10^3/uL (0.0-0.2) Sodium Level 138 mmol/L (136-145) Potassium Level 3.1 mmol/L (3.5-5.1) Chloride Level 102 mmol/L (98-107) Carbon Dioxide Level 32 mmol/L (21-32) Anion Gap 4 (6-14) Blood Urea Nitrogen 12 mg/dL (7-20) Creatinine 0.7 mg/dL (0.6-1.0) Estimated GFR (Cockcroft-Gault) 80.1 Glucose Level 117 mg/dL (70-99) Calcium Level 8.5 mg/dL (8.5-10.1) Magnesium Level 1.8 mg/dL (1.8-2.4) Medications Current Medications Ringer's Solution 1,000 ml @ 1,000 mls/hr 1X ONCE IV Last administered on 05/03/20at 03:46; Start 05/03/20 at 04:00; Stop 05/03/20 at 04:59; Status DC Nitroglycerin (Nitrostat) 0.4 mg PRN Q5MIN PRN SL CHEST PAIN Last administered on 05/03/20at 03:25; Start 05/03/20 at 03:15 Heparin Sodium (Porcine) (Heparin Sodium) 4,000 unit 1X ONCE IV Last administered on 05/03/20at 03:33; Start 05/03/20 at 04:00; Stop 05/03/20 at 04:01; Status DC Heparin Sodium/ Dextrose 250 ml @ 0 mls/hr 1X ONCE IV Last administered on 05/03/20at 03:43; Start 05/03/20 at 04:00; Stop 05/03/20 at 04:01; Status DC Fentanyl Citrate (Fentanyl 2ml Vial) 50 mcg 1X ONCE IVP ; Start 05/03/20 at 04:30; Stop 05/03/20 at 04:31; Status DC Iohexol (Omnipaque 350 Mg/ml) 70 ml 1X ONCE IV ; Start 05/03/20 at 04:30; Stop 05/03/20 at 04:31; Status DC Info (CONTRAST GIVEN -- Rx MONITORING) 1 each PRN DAILY PRN MC SEE COMMENTS; Start 05/03/20 at 04:00; Stop 05/05/20 at 03:59 Aspirin (Aspirin Chewable) 324 mg 1X ONCE PO Last administered on 05/03/20at 04:15; Start 05/03/20 at 04:30; Stop 05/03/20 at 04:31; Status DC Ondansetron HCl (Zofran) 4 mg PRN Q8HRS PRN IV NAUSEA/VOMITING 1ST CHOICE; Start 05/03/20 at 04:15; Stop 05/03/20 at 15:32; Status DC Morphine Sulfate (Morphine Sulfate) 4 mg PRN Q2HR PRN IV SEVERE PAIN 7-10; Start 05/03/20 at 04:15; Stop 05/04/20 at 04:14; Status DC Heparin Sodium/ Dextrose 250 ml @ 8.34 mls/hr ONCE ONCE IV Last administered on 05/03/20at 12:56; Start 05/03/20 at 04:00; Stop 05/04/20 at 09:58; Status DC Ondansetron HCl (Zofran) 4 mg PRN Q6HRS PRN IVP NAUSEA/VOMITING; Start 05/03/20 at 15:30 Pantoprazole Sodium (Protonix) 40 mg DAILYAC PO Last administered on 05/04/20 08:16; Start 05/04/20 at 07:30 Furosemide (Lasix) 40 mg 1X ONCE IVP Last administered on 05/03/20at 16:13; Start 05/03/20 at 16:15; Stop 05/03/20 at 16:16; Status DC Lorazepam (Ativan) 0.5 mg PRN Q2HR PRN PO ANXIETY / AGITATION; Start 05/03/20 at 17:15; Status Cancel Lorazepam (Ativan Inj) 0.5 mg PRN Q2HR PRN IVP ANXIETY / AGITATION Last administered on 05/03/20at 17:24; Start 05/03/20 at 17:30 Heparin Sodium/ Dextrose 250 ml @ 8.34 mls/hr CONT PRN IV PER PROTOCOL Last administered on 05/04/20at 07:19; Start 05/03/20 at 19:30 Heparin Sodium (Porcine) (Heparin Sodium) 1,750 unit PRN Q6HRS PRN IV FOR UFH LEVEL LESS THAN 0.2 Last administered on 05/03/20at 19:54; Start 05/03/20 at 19:30 Acetaminophen (Tylenol) 650 mg PRN DAILY PRN PO MILD pain or fever Last administered on 05/03/20at 23:08; Start 05/03/20 at 23:00 Aspirin (Ecotrin) 81 mg DAILY PO Last administered on 05/04/20at 08:16; Start 05/04/20 at 09:00 Atorvastatin Calcium (Lipitor) 40 mg QHS PO ; Start 05/04/20 at 21:00 Duloxetine HCl (Cymbalta) 30 mg DAILY PO Last administered on 05/04/20 08:16; Start 05/04/20 at 09:00 Lisinopril (Prinivil) 40 mg DAILY PO Last administered on 05/04/20 08:19; Start 05/04/20 at 09:00 Cyclobenzaprine HCl (Flexeril) 5 mg QHS PO Last administered on 05/03/20at 23:08; Start 05/03/20 at 23:00 Trazodone HCl (Desyrel) 150 mg QHS PO Last administered on 05/03/20at 23:08; Start 05/03/20 at 23:00 Potassium Chloride (Klor-Con) 40 meq 1X ONCE PO Last administered on 05/04/20at 13:03; Start 05/04/20 at 11:30; Stop 05/04/20 at 11:31; Status DC Potassium Chloride (Klor-Con) 20 meq [id number] PO ; Start 05/05/20 at 08:00 Active Scripts Active Reported Trazodone Hcl 150 Mg Tablet 1 Tab PO QHS 30 Days Sotalol (Sotalol Hcl) 80 Mg Tablet 1 Tab PO BID Lisinopril 40 Mg Tablet 1 Tab PO DAILY Fish Oil 1,000 Mg Softgel ([place]-3 Fatty Acids/Fish Oil) 1 Each Capsule 1 Cap PO DAILY 30 Days Duloxetine Hcl 30 Mg Capsule.dr 30 Mg PO DAILY Ergocalciferol (Ergocalciferol (Vitamin D2)) 200 Mcg/1 Ml Drops 200 Mcg PO Cyclobenzaprine Hcl 5 Mg Tablet 1 Tab PO QHS D3-50 (Cholecalciferol (Vitamin D3)) 50,000 Unit Capsule 1 Cap PO WEEKLY 28 Days Atorvastatin Calcium 40 Mg Tablet 1 Tab PO DAILY Aspirin Ec (Aspirin) 81 Mg Tablet.dr 1 Tab PO DAILY Ascorbic Acid 500 Mg Tablet 500 Mg PO Acetaminophen 325 Mg Tablet 2 Tab PO PRN DAILY PRN 30 Days Vitals/I & O Vital Sign - Last 24 Hours 05/03/20 05/03/20 05/03/20 05/03/20 17:00 17:17 19:33 19:47 Pulse 90 98 80 B/P (MAP) 146/95 (112) 195/79 (117) 191/77 (115) 169/75 (106) Pulse Ox 95 96 97 O2 Delivery Nasal Cannula Nasal Cannula Nasal Cannula Nasal Cannula O2 Flow Rate 2.0 2.0 2.0 2.0 05/03/20 05/03/20 05/03/20 05/04/20 20:50 22:44 23:19 05:00 Temp 98.1 97.7 97.5 98.1 97.7 97.5 Pulse 87 88 77 Resp 18 18 14 B/P (MAP) 146/85 (105) 155/53 (87) 136/55 (82) Pulse Ox 93 96 97 O2 Delivery Nasal Cannula Nasal Cannula Nasal Cannula O2 Flow Rate 2.0 2.0 2.0 2.0 05/04/20 05/04/20 05/04/20 05/04/20 07:23 07:57 08:19 08:20 Temp 97.9 97.9 Pulse 80 80 Resp 18 B/P (MAP) 160/62 (94) 160/62 Pulse Ox 94 O2 Delivery Nasal Cannula Nasal Cannula O2 Flow Rate 2.0 2.0 05/04/20 05/04/20 05/04/20 09:52 11:00 15:00 Temp 97.9 97.9 Pulse 83 80 Resp 18 18 B/P (MAP) 170/68 (102) 136/53 (80) Pulse Ox 93 91 O2 Delivery Nasal Cannula Room Air Room Air O2 Flow Rate 2.0 Intake and Output 05/03/20 05/03/20 05/04/20 15:00 23:00 07:00 Intake Total 350 ml Output Total 275 ml Balance -275 ml 350 ml Justifications for Admission Chest Pain Indications Respiratory Distress?: Yes Justification for admission: Patient's respiratory distress as indicated by (SOB/tachypnea/abnormal breathing pattern plus hypoxemia/AMS/other evidence of respiratory compromise such as pulmonary edema on chest x-ray) will need inpatient level of care. Other Justification ISABELLA CASEY MD May 04, 2020 16:56
[2020-05-04 17:43] LABS: BILIRUBIN,URINE SMALL (NEG); CLARITY,URINE TURBID; COLOR,URINE AMBER; NITRITE,URINE POSITIVE (NEG); PROTEIN,URINE 30 mg/dL (NEG-TRACE); UROBILINOGEN,URINE >=8.0 mg/dL (0.2 mg/dL)
[2020-05-04 17:44] LABS: BACTERIA,URINE MANY /HPF (0-FEW); RBC,URINE FIELD OBSCURED /HPF (0-2); WBC,URINE TNTC /HPF (0-4)
--- NOTE | 2020-05-04 17:53 | PDOC1 ---
History & Psych Evaluation Date of Service: DOS: DATE: 05/04/20 TIME: 17:40 Source: Source: Caregiver, Chart review, Patient Identification: Identification She is a 80-year-old female with altered mental status, depression and anxiety Chief Complaint: Chief Complaint Altered mental status, depression and anxiety History of Present Illness: HPI: She is a 80-year-old female with history of depression and anxiety seen for initial psychiatric assessment. In her room, she is accompanied by her daughter who also provided meaningful information. Daughter reported that, patient has history of depression and anxiety and being treated on outpatient basis. However, patient thinks that she does not have any history of depression or anxiety. She has been treated for depression and anxiety with Cymbalta. Additionally, for the past few months daughter noticed that patient has been struggling with memory issues. She gets intermittently disoriented mostly in the afternoon does not know where she is or what time of the day. She has been forgetting things. She has history of frequent falls. Not able to perform her ADLs very well. Recently she is requiring assistance with her ADLs. Upon interview, she appears anxious and nervous with questions. She is disoriented thinks that she is in her group home. Short-term memory is impaired however long-term appears intact as she is able to call distant past events. Denies overt depression or anxiety. Denies suicidal or homicidal thoughts. No evidence of heath or hypomania. Past Psychiatric History: History of depression and anxiety being treated with Cymbalta 30 mg daily. Denies history of psychiatric hospital admissions.. Past Medical History: Coronary artery disease Hypertension Pacemaker in place COPD Family History: Denies family history of dementia or psychiatric illness. Social History: Social History: She is a resident of group home. Denies history of illicit substance use or alcohol abuse. Current Medications: Current Medications Current Medications Medications (Trade) Dose Ordered Sig/Formerly [facility] Start Time Stop Time Status Last Admin Dose Admin Acetaminophen (Tylenol) 650 mg PRN DAILY PRN 05/03/20 23:00 05/03/20 23:08 650 MG Aspirin (Aspirin Chewable) 324 mg 1X ONCE 05/03/20 04:30 05/03/20 04:31 DC 05/03/20 04:15 324 MG Aspirin (Ecotrin) 81 mg DAILY 05/04/20 09:00 05/04/20 08:16 81 MG Atorvastatin Calcium (Lipitor) 40 mg QHS 05/04/20 21:00 Cyclobenzaprine HCl (Flexeril) 5 mg QHS 05/03/20 23:00 05/03/20 23:08 5 MG Duloxetine HCl (Cymbalta) 30 mg DAILY 05/04/20 09:00 05/04/20 08:16 30 MG Fentanyl Citrate (Fentanyl 2ml Vial) 50 mcg 1X ONCE 05/03/20 04:30 05/03/20 04:31 DC Furosemide (Lasix) 40 mg 1X ONCE 05/03/20 16:15 05/03/20 16:16 DC 05/03/20 16:13 40 MG Heparin Sodium (Porcine) (Heparin Sodium) 1,750 unit PRN Q6HRS PRN 05/03/20 19:30 05/03/20 19:54 1,750 UNIT Heparin Sodium/ Dextrose 250 ml @ 8.34 mls/hr CONT PRN 05/03/20 19:30 05/04/20 07:19 9.8 MLS/HR Info (CONTRAST GIVEN -- Rx MONITORING) 1 each PRN DAILY PRN 05/03/20 04:00 05/05/20 03:59 Iohexol (Omnipaque 350 Mg/ml) 70 ml 1X ONCE 05/03/20 04:30 05/03/20 04:31 DC Lisinopril (Prinivil) 40 mg DAILY 05/04/20 09:00 05/04/20 08:19 40 MG Lorazepam (Ativan Inj) 0.5 mg PRN Q2HR PRN 05/03/20 17:30 05/03/20 17:24 0.5 MG Lorazepam (Ativan) 0.5 mg PRN Q2HR PRN 05/03/20 17:15 Cancel Morphine Sulfate (Morphine Sulfate) 4 mg PRN Q2HR PRN 05/03/20 04:15 05/04/20 04:14 DC Nitroglycerin (Nitrostat) 0.4 mg PRN Q5MIN PRN 05/03/20 03:15 05/03/20 03:25 0.4 MG Ondansetron HCl (Zofran) 4 mg PRN Q6HRS PRN 05/03/20 15:30 Pantoprazole Sodium (Protonix) 40 mg DAILYAC 05/04/20 07:30 05/04/20 08:16 40 MG Potassium Chloride (Klor-Con) 20 meq [id number] 05/05/20 08:00 Ringer's Solution 1,000 ml @ 1,000 mls/hr 1X ONCE 05/03/20 04:00 05/03/20 04:59 DC 05/03/20 03:46 1,000 MLS/HR Trazodone HCl (Desyrel) 150 mg QHS 05/03/20 23:00 05/03/20 23:08 150 MG Allergies: Allergies: Coded Allergies: No Known Drug Allergies (Unverified , 05/03/20) Mental Status Examination: Mental Status Examination 80-year-old female appears her stated age Cooperative but confused She is disoriented Thought processes concrete Denies auditory or visual hallucinations. No abnormal perception noted. Denies suicidal or homicidal thoughts. Mood is all right Affect is dysthymic Insight is limited Judgment is limited Impulse control is fair Attention span and concentration impaired Recent and remote memory impaired ROS: Psychiatric review of system is otherwise negative except for as stated above. Physical Exam: Refer to Physician's note. 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 MSK: No EPS, TDK, or abnormal involuntary movements Vitals: Vitals Vital Signs Date Time Temp Pulse Resp B/P (MAP) Pulse Ox O2 Delivery O2 Flow Rate FiO2 05/04/20 15:00 97.9 80 18 136/53 (80) 91 Room Air 97.9 05/04/20 09:52 2.0 Labs: Labs Laboratory Tests Test 05/03/20 03:03 05/03/20 03:08 05/03/20 03:09 05/03/20 03:10 Coronavirus (PCR) Not detected (Not Detected) Glucose (Fingerstick) 274 mg/dL (70-99) White Blood Count 13.2 x10^3/uL (4.0-11.0) Red Blood Count 3.75 x10^6/uL (3.50-5.40) Hemoglobin 13.4 g/dL (12.0-15.5) Hematocrit 40.3 % (36.0-47.0) Mean Corpuscular Volume 108 fL (79-100) Mean Corpuscular Hemoglobin 36 pg (25-35) Mean Corpuscular Hemoglobin Concent 33 g/dL (31-37) Red Cell Distribution Width 16.6 % (11.5-14.5) Platelet Count 253 x10^3/uL (140-400) Neutrophils (%) (Auto) 81 % (31-73) Lymphocytes (%) (Auto) 13 % (24-48) Monocytes (%) (Auto) 3 % (0-9) Eosinophils (%) (Auto) 2 % (0-3) Basophils (%) (Auto) 1 % (0-3) Neutrophils # (Auto) 10.7 x10^3/uL (1.8-7.7) Lymphocytes # (Auto) 1.7 x10^3/uL (1.0-4.8) Monocytes # (Auto) 0.4 x10^3/uL (0.0-1.1) Eosinophils # (Auto) 0.2 x10^3/uL (0.0-0.7) Basophils # (Auto) 0.2 x10^3/uL (0.0-0.2) Sodium Level 139 mmol/L (136-145) Potassium Level 4.0 mmol/L (3.5-5.1) Chloride Level 102 mmol/L (98-107) Carbon Dioxide Level 28 mmol/L (21-32) Anion Gap 9 (6-14) Blood Urea Nitrogen 13 mg/dL (7-20) Creatinine 0.9 mg/dL (0.6-1.0) Estimated GFR (Cockcroft-Gault) 59.9 BUN/Creatinine Ratio 14 (6-20) Glucose Level 310 mg/dL (70-99) Hemoglobin A1c 5.0 % (4.8-5.6) Calcium Level 9.2 mg/dL (8.5-10.1) Total Bilirubin 1.1 mg/dL (0.2-1.0) Aspartate Amino Transf (AST/SGOT) 26 U/L (15-37) Alanine Aminotransferase (ALT/SGPT) 26 U/L (14-59) Alkaline Phosphatase 84 U/L (46-116) Troponin I Quantitative 0.388 ng/mL (0.000-0.055) SU-Bru-X-Type Natriuretic Peptide 26277 pg/mL (0-449) Total Protein 7.7 g/dL (6.4-8.2) Albumin 3.3 g/dL (3.4-5.0) Albumin/Globulin Ratio 0.8 (1.0-1.7) Triglycerides Level 83 mg/dL (0-150) Cholesterol Level 153 mg/dL (0-200) LDL Cholesterol, Calculated 74 mg/dL (0-100) VLDL Cholesterol, Calculated 17 mg/dL (0-40) Non-HDL Cholesterol Calculated 91 mg/dL (0-129) HDL Cholesterol 62 mg/dL (40-60) Cholesterol/HDL Ratio 2.5 Bedside Troponin I 0.06 ng/ml (<0.08) Test 05/03/20 04:01 05/03/20 07:53 05/03/20 07:56 05/03/20 10:45 Bedside Venous pH 7.36 (7.32-7.42) Bedside Venous pCO2 53 mmHg (41-51) Bedside Venous pO2 58 mmHg (20-40) Venous Blood HCO3 30 mmol/L (24-28) POC Venous O2 Saturation (Christine) 88 % Bedside FiO2 21.0 Troponin I Quantitative 1.793 ng/mL (0.000-0.055) SARS-CoV-2 Antigen (Rapid) Negative (NEGATIVE) Prothrombin Time 13.8 SEC (11.7-14.0) Prothromb Time International Ratio 1.1 (0.8-1.1) Activated Partial Thromboplast Time 131 SEC (24-38) Heparin Anti-Xa Act, Unfractionated 0.53 IU/mL (0.30-0.70) Test 05/03/20 14:10 05/03/20 17:45 05/03/20 22:52 05/04/20 05:09 Troponin I Quantitative 3.414 ng/mL (0.000-0.055) Heparin Anti-Xa Act, Unfractionated < 0.10 IU/mL (0.30-0.70) 0.59 IU/mL (0.30-0.70) 0.45 IU/mL (0.30-0.70) White Blood Count 6.5 x10^3/uL (4.0-11.0) Red Blood Count 3.06 x10^6/uL (3.50-5.40) Hemoglobin 11.1 g/dL (12.0-15.5) Hematocrit 32.5 % (36.0-47.0) Mean Corpuscular Volume 106 fL (79-100) Mean Corpuscular Hemoglobin 36 pg (25-35) Mean Corpuscular Hemoglobin Concent 34 g/dL (31-37) Red Cell Distribution Width 16.6 % (11.5-14.5) Platelet Count 167 x10^3/uL (140-400) Neutrophils (%) (Auto) 65 % (31-73) Lymphocytes (%) (Auto) 23 % (24-48) Monocytes (%) (Auto) 8 % (0-9) Eosinophils (%) (Auto) 1 % (0-3) Basophils (%) (Auto) 3 % (0-3) Neutrophils # (Auto) 4.2 x10^3/uL (1.8-7.7) Lymphocytes # (Auto) 1.5 x10^3/uL (1.0-4.8) Monocytes # (Auto) 0.5 x10^3/uL (0.0-1.1) Eosinophils # (Auto) 0.1 x10^3/uL (0.0-0.7) Basophils # (Auto) 0.2 x10^3/uL (0.0-0.2) Sodium Level 138 mmol/L (136-145) Potassium Level 3.1 mmol/L (3.5-5.1) Chloride Level 102 mmol/L (98-107) Carbon Dioxide Level 32 mmol/L (21-32) Anion Gap 4 (6-14) Blood Urea Nitrogen 12 mg/dL (7-20) Creatinine 0.7 mg/dL (0.6-1.0) Estimated GFR (Cockcroft-Gault) 80.1 Glucose Level 117 mg/dL (70-99) Calcium Level 8.5 mg/dL (8.5-10.1) Magnesium Level 1.8 mg/dL (1.8-2.4) Laboratory Tests Test 05/03/20 17:45 05/03/20 22:52 05/04/20 05:09 Heparin Anti-Xa Act, Unfractionated < 0.10 IU/mL (0.30-0.70) 0.59 IU/mL (0.30-0.70) 0.45 IU/mL (0.30-0.70) White Blood Count 6.5 x10^3/uL (4.0-11.0) Red Blood Count 3.06 x10^6/uL (3.50-5.40) Hemoglobin 11.1 g/dL (12.0-15.5) Hematocrit 32.5 % (36.0-47.0) Mean Corpuscular Volume 106 fL (79-100) Mean Corpuscular Hemoglobin 36 pg (25-35) Mean Corpuscular Hemoglobin Concent 34 g/dL (31-37) Red Cell Distribution Width 16.6 % (11.5-14.5) Platelet Count 167 x10^3/uL (140-400) Neutrophils (%) (Auto) 65 % (31-73) Lymphocytes (%) (Auto) 23 % (24-48) Monocytes (%) (Auto) 8 % (0-9) Eosinophils (%) (Auto) 1 % (0-3) Basophils (%) (Auto) 3 % (0-3) Neutrophils # (Auto) 4.2 x10^3/uL (1.8-7.7) Lymphocytes # (Auto) 1.5 x10^3/uL (1.0-4.8) Monocytes # (Auto) 0.5 x10^3/uL (0.0-1.1) Eosinophils # (Auto) 0.1 x10^3/uL (0.0-0.7) Basophils # (Auto) 0.2 x10^3/uL (0.0-0.2) Sodium Level 138 mmol/L (136-145) Potassium Level 3.1 mmol/L (3.5-5.1) Chloride Level 102 mmol/L (98-107) Carbon Dioxide Level 32 mmol/L (21-32) Anion Gap 4 (6-14) Blood Urea Nitrogen 12 mg/dL (7-20) Creatinine 0.7 mg/dL (0.6-1.0) Estimated GFR (Cockcroft-Gault) 80.1 Glucose Level 117 mg/dL (70-99) Calcium Level 8.5 mg/dL (8.5-10.1) Magnesium Level 1.8 mg/dL (1.8-2.4) Diagnosis: Diagnosis: Acute delirium, likely hypoactive, multifactorial Unspecified neurocognitive disorder, rule out major neurocognitive disorder. Major depressive disorder Unspecified anxiety disorder. Assessment: 80-year-old female struggling with acute delirium in context of ongoing infectious process. Additionally, history is consistent with some underlying ne urocognitive decline which could be vascular in etiology. Family is in agreement to start risperidone for the resolution of delirium. Once delirium is resolved we will reassess for neurocognitive status. For depression and anxiety continue Cymbalta. Plan: Risperidone 1 mg nightly for the resolution of delirium. Continue Cymbalta as is. We may consider increasing Cymbalta if required. Risk, benefits, alternatives of the treatment are discussed. She is in agreement with plan and voiced understanding. Adverse drug reaction of the medications with black box warning are also discussed. Applied delirium protocol. Avoid sundowning. Avoid sedatives and hypnotics. Thank you for involving inpatient care. HEBERT DIEGO MD May 04, 2020 17:53
[2020-05-04] MEDS: cefTRIAXone IV Push 1 GM VIAL. IVP SCH (18:13)
[2020-05-04 19:00] VITALS: BP 151/58
[2020-05-04] MEDS: ATORVASTATIN CALCIUM 40 MG TABLET. PO SCH (20:25)
[2020-05-04] MEDS: CYCLOBENZAPRINE 10 MG TABLET. PO SCH (20:25)
[2020-05-04] MEDS: traZODone 50 MG TABLET. PO SCH (20:26)
[2020-05-04] MEDS ORDERED: risperiDONE 1 MG TABLET. PO SCH (21:00)
[2020-05-04 23:00] VITALS: BP 142/58
[2020-05-05] VITALS (7 sets, daily range): BP systolic 121–170; BP diastolic 46–72
--- NOTE | 2020-05-05 02:17 | CONS ---
DATE OF CONSULTATION: 05/04/2020 ATTENDING PHYSICIAN: Dr. Garduno. REASON FOR CONSULTATION: The patient is seen in pulmonary consultation at the request of Dr. Pickering for abnormal chest x-ray. HISTORY OF PRESENT ILLNESS: The patient is an 80-year-old with past history of coronary artery disease, previous stent placement, dyslipidemia, status post pacemaker came in with increasing shortness of breath. The patient is somewhat of a poor historian. She was found to have saturations on room air of 80%. She does not utilize oxygen at home. She quit tobacco many years ago. She presented and had a chest x-ray, which I personally reviewed. There is evidence of basilar opacities, which I think are probably related to edema. The patient denies fever or chills. No COVID-19 exposures. She lives at a half-way at [facility]. She denies fever, chills, nausea or vomiting. PAST MEDICAL HISTORY: Coronary artery disease with previous stent placement, unknown FEV1; status post pacemaker implantation; dyslipidemia; COPD, unknown FEV1; tobacco dependence, in remission. PAST SURGICAL HISTORY: As above. ALLERGIES: No known drug allergies. REVIEW OF SYSTEMS: CONSTITUTIONAL: No fever or chills. EYES: No change in visual acuity. HENT: No nasal congestion or sore throat. PULMONARY: As indicated above. CARDIOVASCULAR: No chest pain. No pressure. GASTROINTESTINAL: No nausea, vomiting or diarrhea. GENITOURINARY: No dysuria or frequency. MUSCULOSKELETAL: No localized muscle aches or joint pains. SKIN: No new skin rashes. NEUROLOGIC: No headaches, diplopia or blurred vision. CURRENT MEDICATIONS: List was reviewed. HOME MEDICATIONS: List was likewise reviewed. PHYSICAL EXAMINATION: VITAL SIGNS: Stable. O2 saturation was greater than 92%. HEENT: Eyes, the sclerae were nonicteric. NECK: Jugular venous distention was not elevated. No lymphadenopathy. CHEST: Full expansion. LUNGS: Crackles in the bases. No wheezes. CARDIOVASCULAR: Regular rate and rhythm with S1, S2, no S3. ABDOMEN: Soft, nontender, nondistended. EXTREMITIES: No clubbing, cyanosis or pitting edema. LABORATORY DATA: Reviewed. White count was normal. Hemoglobin and hematocrit were normal. Serology for SARS COVID-2 was negative, both the rapid and PCR. Arterial blood gas; pH of 7.36, PaCO2 of 53, pO2 of 58 on room air. IMPRESSION: 1. Acute hypoxemic respiratory failure. 2. Acute on chronic systolic and diastolic heart failure. 3. Chronic obstructive pulmonary disease. 4. Coronary artery disease with previous stent placement. 5. Tobacco dependence, in remission. 6. Non-ST segment elevation myocardial infarction. PLAN: 1. Clinically, the patient presentation presents with shortness of breath and hypoxemia. No fever, chills or night sweats. Suspect the chest x-ray findings are mainly related to congestive heart failure. I do not recommend any antibiotics at this time. 2. Continue oxygen supplementation. 3. IV Lasix. 4. Follow Cardiology input. 5. Anticoagulation with heparin. 6. Follow Cardiology input. RACHELE EVANS MD DR: GILMER/jenna JOB#: [id number] / [id number]
--- NOTE | 2020-05-05 05:24 | EKG ---
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
[2020-05-05 06:50] LABS: CALCIUM 8.8 mg/dL (8.5-10.1); CREATININE 0.7 mg/dL (0.6-1.0); GFR 80.1; POTASSIUM 3.8 mmol/L (3.5-5.1)
[2020-05-05] MEDS: ASPIRIN ENTERIC COATED 81 MG TABLET.DR. PO SCH (08:45)
[2020-05-05] MEDS: PANTOPRAZOLE 40 MG TABLET.DR. PO SCH (08:45)
[2020-05-05] MEDS: DULoxetine HCL 30 MG CAPSULE.DR PO SCH (08:46)
[2020-05-05] MEDS: POTASSIUM CHLORIDE 20 MEQ TABLET.ER. PO SCH (08:46)
[2020-05-05] MEDS: LISINOPRIL 20 MG TABLET PO SCH (08:46)
--- NOTE | 2020-05-05 10:01 | PDOC ---
PULMONARY PROGRESS NOTES DATE: 05/05/20 TIME: 09:58 Subjective no soa, on RA Vitals Vital Signs Date Time Temp Pulse Resp B/P (MAP) Pulse Ox O2 Delivery O2 Flow Rate FiO2 05/05/20 08:46 96 131/56 05/05/20 06:49 98.2 18 98 Nasal Cannula 2.0 98.2 General: Alert, No acute distress Lungs: Clear Cardiovascular: S1 Abdomen: Soft Neuro Exam: Alert Extremities: No Edema Labs Laboratory Tests Test 05/03/20 10:45 05/03/20 14:10 05/03/20 17:45 05/03/20 22:52 Prothrombin Time 13.8 SEC (11.7-14.0) Prothromb Time International Ratio 1.1 (0.8-1.1) Activated Partial Thromboplast Time 131 SEC (24-38) Heparin Anti-Xa Act, Unfractionated 0.53 IU/mL (0.30-0.70) < 0.10 IU/mL (0.30-0.70) 0.59 IU/mL (0.30-0.70) Troponin I Quantitative 3.414 ng/mL (0.000-0.055) Test 05/04/20 05:09 05/04/20 17:00 05/05/20 05:45 White Blood Count 6.5 x10^3/uL (4.0-11.0) Red Blood Count 3.06 x10^6/uL (3.50-5.40) Hemoglobin 11.1 g/dL (12.0-15.5) Hematocrit 32.5 % (36.0-47.0) Mean Corpuscular Volume 106 fL (79-100) Mean Corpuscular Hemoglobin 36 pg (25-35) Mean Corpuscular Hemoglobin Concent 34 g/dL (31-37) Red Cell Distribution Width 16.6 % (11.5-14.5) Platelet Count 167 x10^3/uL (140-400) Neutrophils (%) (Auto) 65 % (31-73) Lymphocytes (%) (Auto) 23 % (24-48) Monocytes (%) (Auto) 8 % (0-9) Eosinophils (%) (Auto) 1 % (0-3) Basophils (%) (Auto) 3 % (0-3) Neutrophils # (Auto) 4.2 x10^3/uL (1.8-7.7) Lymphocytes # (Auto) 1.5 x10^3/uL (1.0-4.8) Monocytes # (Auto) 0.5 x10^3/uL (0.0-1.1) Eosinophils # (Auto) 0.1 x10^3/uL (0.0-0.7) Basophils # (Auto) 0.2 x10^3/uL (0.0-0.2) Heparin Anti-Xa Act, Unfractionated 0.45 IU/mL (0.30-0.70) 0.78 IU/mL (0.30-0.70) Sodium Level 138 mmol/L (136-145) 140 mmol/L (136-145) Potassium Level 3.1 mmol/L (3.5-5.1) 3.8 mmol/L (3.5-5.1) Chloride Level 102 mmol/L (98-107) 104 mmol/L (98-107) Carbon Dioxide Level 32 mmol/L (21-32) 30 mmol/L (21-32) Anion Gap 4 (6-14) 6 (6-14) Blood Urea Nitrogen 12 mg/dL (7-20) 12 mg/dL (7-20) Creatinine 0.7 mg/dL (0.6-1.0) 0.7 mg/dL (0.6-1.0) Estimated GFR (Cockcroft-Gault) 80.1 80.1 Glucose Level 117 mg/dL (70-99) 130 mg/dL (70-99) Calcium Level 8.5 mg/dL (8.5-10.1) 8.8 mg/dL (8.5-10.1) Magnesium Level 1.8 mg/dL (1.8-2.4) Urine Collection Type Unknown Urine Color Kamilla Urine Clarity Turbid Urine pH 6.0 (<5.0-8.0) Urine Specific Sanderson 1.015 (1.000-1.030) Urine Protein 30 mg/dL (NEG-TRACE) Urine Glucose (UA) Negative mg/dL (NEG) Urine Ketones (Stick) Negative mg/dL (NEG) Urine Blood Trace (NEG) Urine Nitrite Positive (NEG) Urine Bilirubin Small (NEG) Urine Urobilinogen Dipstick >=8.0 mg/dL (0.2 mg/dL) Urine Leukocyte Esterase Large (NEG) Urine RBC Field obscured /HPF (0-2) Urine WBC Tntc /HPF (0-4) Urine Bacteria Many /HPF (0-FEW) Laboratory Tests Test 05/04/20 17:00 05/05/20 05:45 Urine Collection Type Unknown Urine Color Kamilla Urine Clarity Turbid Urine pH 6.0 (<5.0-8.0) Urine Specific Sanderson 1.015 (1.000-1.030) Urine Protein 30 mg/dL (NEG-TRACE) Urine Glucose (UA) Negative mg/dL (NEG) Urine Ketones (Stick) Negative mg/dL (NEG) Urine Blood Trace (NEG) Urine Nitrite Positive (NEG) Urine Bilirubin Small (NEG) Urine Urobilinogen Dipstick >=8.0 mg/dL (0.2 mg/dL) Urine Leukocyte Esterase Large (NEG) Urine RBC Field obscured /HPF (0-2) Urine WBC Tntc /HPF (0-4) Urine Bacteria Many /HPF (0-FEW) Heparin Anti-Xa Act, Unfractionated 0.78 IU/mL (0.30-0.70) Sodium Level 140 mmol/L (136-145) Potassium Level 3.8 mmol/L (3.5-5.1) Chloride Level 104 mmol/L (98-107) Carbon Dioxide Level 30 mmol/L (21-32) Anion Gap 6 (6-14) Blood Urea Nitrogen 12 mg/dL (7-20) Creatinine 0.7 mg/dL (0.6-1.0) Estimated GFR (Cockcroft-Gault) 80.1 Glucose Level 130 mg/dL (70-99) Calcium Level 8.8 mg/dL (8.5-10.1) Medications Active Scripts Medications Dose Route/Sig Max Daily Dose Days Date Category Trazodone Hcl 150 Mg Tablet 1 Tab PO QHS 30 05/03/20 Reported Sotalol (Sotalol Hcl) 80 Mg Tablet 1 Tab PO BID 05/03/20 Reported Lisinopril 40 Mg Tablet 1 Tab PO DAILY 05/03/20 Reported Fish Oil 1,000 Mg Softgel ([place]-3 Fatty Acids/Fish Oil) 1 Each Capsule 1 Cap PO DAILY 30 05/03/20 Reported Duloxetine Hcl 30 Mg Capsule.dr 30 Mg PO DAILY 05/03/20 Reported Ergocalciferol (Ergocalciferol (Vitamin D2)) 200 Mcg/1 Ml Drops 200 Mcg PO 05/03/20 Reported Cyclobenzaprine Hcl 5 Mg Tablet 1 Tab PO QHS 05/03/20 Reported D3-50 (Cholecalciferol (Vitamin D3)) 50,000 Unit Capsule 1 Cap PO WEEKLY 28 05/03/20 Reported Atorvastatin Calcium 40 Mg Tablet 1 Tab PO DAILY 05/03/20 Reported Aspirin Ec (Aspirin) 81 Mg Tablet.dr 1 Tab PO DAILY 05/03/20 Reported Ascorbic Acid 500 Mg Tablet 500 Mg PO 05/03/20 Reported Acetaminophen 325 Mg Tablet 2 Tab PO PRN DAILY PRN 30 05/03/20 Reported Impression . 1. Acute hypoxemic respiratory failure. 2. Acute on chronic systolic and diastolic heart failure.EF 35% 3. Chronic obstructive pulmonary disease. 4. Coronary artery disease with previous stent placement. 5. Tobacco dependence, in remission. 6. Non-ST segment elevation myocardial infarction. 7. Abnormal cxr c/w CHF Plan . PLAN: 1. can dc abx 2. Continue oxygen supplementation prn 3. IV Lasix.per cardiology 4. Follow Cardiology input. 5. Anticoagulation with heparin. DIEGO VYAS MD May 05, 2020 10:01
--- NOTE | 2020-05-05 10:11 | PDOC ---
[employer] PROGRESS NOTE Date of Service DOS: DATE: 05/05/20 TIME: 10:05 Chief Complaint Chief Complaint mages: Images CXR IMPRESSION: * Interstitial and alveolar opacities bilaterally which could be from edema or infiltrate. * Obliquely oriented line near the right apex partially seen. Would favor that this is secondary to overlap of structures rather than pleural line from pneumothorax given the morphology. Assessment/Plan Chest pain concerning for NSTEMI, rule out ACS Acute hypoxic respiratory failure DLD Pacemaker placement Chest pain concerning for unstable angina/NSTEMI Troponin of [phone] HYPOKALEMIA PLAN ADMIT CVC BED Continue aspirin, consider Plavix if intermediate risk will defer this to cardiology Cardiology consulted for predischarge stress testing or left heart cath Continue nitroglycerin as needed for pain Continue beta-vishal if blood pressures allow Continue high intensity statins IV morphine as needed Consider Lovenox Maintain O2 sats between 88 to 95% Trend troponins Repeat EKG in the a.m. Continue telemetry monitoring Monitor for electrolyte abnormalities Avoid NSAIDs Heparin drip for DVT prophylaxis Protonix GI prophylaxis ADA diet Full code Discussed with RN and SW Disposition pending cardiology evaluation Surrogate decision maker is the daughter REPLACE Claire 05/04, CONSULT PULM , ECHO Justifications for Admission Justifications for Admission Other Justification History of Present Illness History of Present Illness 05/05/2020 Patient seen and examined Patient was resting, NAD, under 1:1 observation Discussed with RN Discussed with rn case manager Chart reviewed Vitals/I&O Vitals/I&O: Vital Signs Date Time Temp Pulse Resp B/P (MAP) Pulse Ox O2 Delivery O2 Flow Rate FiO2 05/05/20 08:46 96 131/56 05/05/20 06:49 98.2 18 98 Nasal Cannula 2.0 98.2 I & O 05/04/20 05/04/20 05/05/20 15:00 23:00 07:00 Intake Total 300 ml Output Total 475 ml 375 ml 200 ml Balance -475 ml -375 ml 100 ml Physical Exam Physical Exam: GEN: Minimal distress. Alert and oriented to self only. HEENT: Normal cephalic, atraumatic, EYES: Extraocular muscles are intact, pupil are equally round and reactive to light and accommodation MUSCULOSKELETAL: Well developed , well nourished, good range of motion ENDOCRINE: No thyromegaly was palpated LYMPHATICS: No cervical chain or axillary nodes were noted HEMATOPOIETIC: No bruising NECK: Supple, no JVD, no thyromegaly was noted LUNGS: Clear to auscultation in all lung adams without rhonchi or wheezing HEART: RRR, S!, S2 present. Peripheral pulses intact, no obvious murmurs noted ABDOMEN: Soft, nontender. Positive bowel sounds, no organomegaly, normal bowel sounds EXTREMITIES: Without clubbing, cyanosis, or edema. Pedal pulses intact. Negative Homans sign NEUROLOGIC: Normal speech and tone. A&O x 3, moves all extremities, no obvious focal deficits PSYCHIATRIC: Normal affect, normal mood. Stable SKIN: No ulcerations or rashes, good skin turgor, no jaundice VASCULAR: Good capillary refill, neurovascular bundle appears to be intact General: No acute distress Heart: Regular rate Lungs: Clear Abdomen: Normal bowel sounds Labs Labs: Laboratory Tests Test 05/04/20 17:00 05/05/20 05:45 Urine Collection Type Unknown Urine Color Kamilla Urine Clarity Turbid Urine pH 6.0 (<5.0-8.0) Urine Specific [place] 1.015 (1.000-1.030) Urine Protein 30 mg/dL (NEG-TRACE) Urine Glucose (UA) Negative mg/dL (NEG) Urine Ketones (Stick) Negative mg/dL (NEG) Urine Blood Trace (NEG) Urine Nitrite Positive (NEG) Urine Bilirubin Small (NEG) Urine Urobilinogen Dipstick >=8.0 mg/dL (0.2 mg/dL) Urine Leukocyte Esterase Large (NEG) Urine RBC Field obscured /HPF (0-2) Urine WBC Tntc /HPF (0-4) Urine Bacteria Many /HPF (0-FEW) Heparin Anti-Xa Act, Unfractionated 0.78 IU/mL (0.30-0.70) Sodium Level 140 mmol/L (136-145) Potassium Level 3.8 mmol/L (3.5-5.1) Chloride Level 104 mmol/L (98-107) Carbon Dioxide Level 30 mmol/L (21-32) Anion Gap 6 (6-14) Blood Urea Nitrogen 12 mg/dL (7-20) Creatinine 0.7 mg/dL (0.6-1.0) Estimated GFR (Cockcroft-Gault) 80.1 Glucose Level 130 mg/dL (70-99) Calcium Level 8.8 mg/dL (8.5-10.1) Review of Systems Review of Systems: Patient denies weakness. Patient denies pain. Assessment and Plan Assessmemt and Plan Problems Medical Problems: (1) Abnormal EKG Status: Acute (2) History of pacemaker Status: Acute (3) Hyperlipidemia Status: Acute (4) Hypertension Status: Acute (5) NSTEMI (non-ST elevated myocardial infarction) Status: Acute Assessment NSTEMI Hyperlipidemia Hypertension Plan Continue heparin drip Cardiac monitoring Continue 1:1 observation Continue home meds Continue Risperidone per psych Awaiting cardiology consult Patient is DNR Comment Review of Relevant I have reviewed the following items [place] (where applicable) has been applied. Medications: Current Medications Medications (Trade) Dose Ordered Sig/Kerri Route PRN Reason Start Time Stop Time Status Last Admin Dose Admin Atorvastatin Calcium (Lipitor) 40 mg QHS PO 05/04/20 21:00 05/04/20 20:25 Potassium Chloride (Klor-Con) 40 meq 1X ONCE PO 05/04/20 11:30 05/04/20 11:31 DC 05/04/20 13:03 Potassium Chloride (Klor-Con) 20 meq DAILYWBKFT PO 05/05/20 08:00 05/05/20 08:46 Risperidone (RisperDAL) 1 mg HS PO 05/04/20 21:00 05/04/20 20:26 Ceftriaxone Sodium (Rocephin) 1 gm Q24H IVP 05/04/20 18:00 05/07/20 17:59 05/04/20 18:13 Justifications for Admission Chest Pain Indications Respiratory Distress?: Yes Justification for admission: Patient's respiratory distress as indicated by (SOB/tachypnea/abnormal breathing pattern plus hypoxemia/AMS/other evidence of respiratory compromise such as pulmonary edema on chest x-ray) will need inpatient level of care. Other Justification GISSELLE RIVERA III DO May 05, 2020 10:11
[2020-05-05] MEDS: HEPARIN 25,000UTS/250ML PREMIX 250 ML IV PRN (10:28)
--- NOTE | 2020-05-05 12:24 | NUR ---
SS following up with discharge planning. SS reviewed pt chart and discussed with pt RN. Pt is currently requiring oxygen. Pt on IV Rocephin and Heparin drip. PT/OT ordered. Cardiology following and requesting records. SS will continue to follow for discharge planning.
[2020-05-05] MEDS ORDERED: ANTI-COAG MONITOR BY PHARMACY. MC PRN (15:15)
[2020-05-05] MEDS ORDERED: CLOPIDOGREL BISULFATE 75 MG TABLET PO ONE (16:15)
--- NOTE | 2020-05-05 16:22 | PDOC ---
CARDIO Progress Notes Date and Time Date of Service 05/05/2020 Time of Evaluation 1110 Subjective Subjective: No Chest Pain, No shortness of breath, No Palpitations Vitals Vitals Vital Signs Date Time Temp Pulse Resp B/P (MAP) Pulse Ox O2 Delivery O2 Flow Rate FiO2 05/05/20 14:37 98.0 73 18 170/72 (104) 95 Room Air 98.0 05/05/20 08:00 2.0 Weight Weight [ ] Input and Output Intake and Output Intake and Output 05/05/20 07:00 Intake Total 300 ml Output Total 1050 ml Balance -750 ml Intake Oral 300 ml Output Urine Total 1050 ml # Voids 2 Laboratory Labs Laboratory Tests Test 05/04/20 17:00 05/05/20 05:45 Urine Collection Type Unknown Urine Color Kamilla Urine Clarity Turbid Urine pH 6.0 (<5.0-8.0) Urine Specific [place] 1.015 (1.000-1.030) Urine Protein 30 mg/dL (NEG-TRACE) Urine Glucose (UA) Negative mg/dL (NEG) Urine Ketones (Stick) Negative mg/dL (NEG) Urine Blood Trace (NEG) Urine Nitrite Positive (NEG) Urine Bilirubin Small (NEG) Urine Urobilinogen Dipstick >=8.0 mg/dL (0.2 mg/dL) Urine Leukocyte Esterase Large (NEG) Urine RBC Field obscured /HPF (0-2) Urine WBC Tntc /HPF (0-4) Urine Bacteria Many /HPF (0-FEW) Heparin Anti-Xa Act, Unfractionated 0.78 IU/mL (0.30-0.70) Sodium Level 140 mmol/L (136-145) Potassium Level 3.8 mmol/L (3.5-5.1) Chloride Level 104 mmol/L (98-107) Carbon Dioxide Level 30 mmol/L (21-32) Anion Gap 6 (6-14) Blood Urea Nitrogen 12 mg/dL (7-20) Creatinine 0.7 mg/dL (0.6-1.0) Estimated GFR (Cockcroft-Gault) 80.1 Glucose Level 130 mg/dL (70-99) Calcium Level 8.8 mg/dL (8.5-10.1) Troponin I Quantitative 2.901 ng/mL (0.000-0.055) Physical Exam HEENT: Neck Supple W Full Motion Chest: Symmetric LUNGS: Clear to Auscultation Heart: S1S2, RRR (SR) Abdomen: Soft N/T Extremities: No Calf Tenderness Neurology: alert, oriented, follow commands Assessment Assessment 1. NSTEMI: Peaked trop at 3.4. was with CP but currently absent 2. Acute likely on chronic diastolic/systolic CHF: appears compensated 3. Cardiomyopathy: EF at 35-40% 4. CAD: past stents 5. PPM in situ: currently SR with intermittent V pacing 6. HTN: labile episodes 7. HLP 8. Metabolic encephalopathy with hx of recurrent UTI. periods of confusion 9. PAFIB? on sotalol Recommendations 1. [facility] records pending. Pt did have LHC done by Dr. Mac in 02/2020 to which prior stents were noted patent accdg to her DPOA her sister Yovana. I discussed with her significantly in regards to her baseline mentation and cardiac function. She could not remember any further specifics if any small vessel disease is mentioned or even diminished EF. Not noted with any vasodilators. She has been mentally sharp about a yr ago performing complicated tasks but since then her mentation and ability for self care has decreased significnatly and has been displaying more confusion. Her DPOA thinks it must be from her UTI but no mention of any hx of CVA or alzheimers. Would defer any neurocognitive eval to PCP otherwise no neurofocal symptoms. Her rhythm is stable. Will continue ASA DC heparin and will start on plavix. 2. Will review records prior to any further recommendation. Continue GDMT. including lisinopril and lasix. Appears sotalol is part of her regimen. Will verify with old records. Start on coreg for now. May need to start on vasodilators await records. 3. Will interrogate device and note AFIB burden. Justicifation of Admission Dx: Justifications for Admission: Justification of Admission Dx: Yes Angina: [place] Worsening of Sym OR: Acute NSTEMI LANE EPP[employer]OW SHAKER May 05, 2020 16:22
[2020-05-05] MEDS: cefTRIAXone IV Push 1 GM VIAL. IVP SCH (17:51)
[2020-05-05] MEDS: CARVEDILOL 6.25 MG TABLET. PO SCH (17:52)
--- NOTE | 2020-05-05 19:53 | PDOC ---
F/U PHYSCH PROG NOTE Subjective: She is a female seen for follow-up. Progress is reviewed with nursing staff. No emotional or behavioral breakdown reported. She continues to be confused and disoriented. However, orientation has improved somewhat. Able to tell a year and place contrary to yesterday she was not able to tell anything. Denies suicidal or homicidal thoughts. Denies auditory or visual hallucinations. No evidence of heath or hypomania. Tolerating medication denies adverse drug reaction. Also spoke to her DURABLE POWER OF [employer]AY BOOTH OPERATOR who was concerned about patient's mental status and behavior. She is explained regarding patient progress, diagnosis, and prognosis. Objective: 14 point review of system is otherwise negative except for stated above. Vital Signs: Vital Signs Date Time Temp Pulse Resp B/P (MAP) Pulse Ox O2 Delivery O2 Flow Rate FiO2 05/05/20 19:00 97.7 105 18 159/69 (99) 95 Room Air 97.7 05/05/20 08:00 2.0 Labs: Laboratory Tests Test 05/05/20 05:45 05/05/20 16:50 Heparin Anti-Xa Act, Unfractionated 0.78 IU/mL (0.30-0.70) H 0.54 IU/mL (0.30-0.70) Sodium Level 140 mmol/L (136-145) Potassium Level 3.8 mmol/L (3.5-5.1) Chloride Level 104 mmol/L (98-107) Carbon Dioxide Level 30 mmol/L (21-32) Anion Gap 6 (6-14) Blood Urea Nitrogen 12 mg/dL (7-20) Creatinine 0.7 mg/dL (0.6-1.0) Estimated GFR (Cockcroft-Gault) 80.1 Glucose Level 130 mg/dL (70-99) H Calcium Level 8.8 mg/dL (8.5-10.1) Troponin I Quantitative 2.901 ng/mL (0.000-0.055) Laboratory Tests 05/05/20 05:45 Medications: Current Medications Medications (Trade) Dose Ordered Sig/Kerri Start Time Stop Time Status Last Admin Dose Admin Acetaminophen (Tylenol) 650 mg PRN DAILY PRN 05/03/20 23:00 05/03/20 23:08 650 MG Aspirin (Aspirin Chewable) 324 mg 1X ONCE 05/03/20 04:30 05/03/20 04:31 DC 05/03/20 04:15 324 MG Aspirin (Ecotrin) 81 mg DAILY 05/04/20 09:00 05/05/20 08:45 81 MG Atorvastatin Calcium (Lipitor) 40 mg QHS 05/04/20 21:00 05/04/20 20:25 40 MG Carvedilol (Coreg) 6.25 mg BIDWMEALS 05/05/20 17:00 05/05/20 17:52 6.25 MG Ceftriaxone Sodium (Rocephin) 1 gm Q24H 05/04/20 18:00 05/07/20 17:59 05/05/20 17:51 1 GM Clopidogrel Bisulfate (Plavix) 75 mg DAILYWBKFT 05/06/20 08:00 Cyclobenzaprine HCl (Flexeril) 5 mg QHS 05/03/20 23:00 05/04/20 20:25 5 MG Duloxetine HCl (Cymbalta) 30 mg DAILY 05/04/20 09:00 05/05/20 08:46 30 MG Fentanyl Citrate (Fentanyl 2ml Vial) 50 mcg 1X ONCE 05/03/20 04:30 05/03/20 04:31 DC Furosemide (Lasix) 40 mg DAILY 05/06/20 09:00 Heparin Sodium (Porcine) (Heparin Sodium) 1,750 unit PRN Q6HRS PRN 05/03/20 19:30 05/03/20 19:54 1,750 UNIT Heparin Sodium/ Dextrose 250 ml @ 8.34 mls/hr CONT PRN 05/03/20 19:30 05/05/20 10:28 8.34 MLS/HR Info (Anti-Coagulation Monitoring By Pharmacy) 1 each PRN DAILY PRN 05/05/20 15:15 05/05/20 15:10 1 EACH Info (CONTRAST GIVEN -- Rx MONITORING) 1 each PRN DAILY PRN 05/03/20 04:00 05/05/20 03:59 DC Iohexol (Omnipaque 350 Mg/ml) 70 ml 1X ONCE 05/03/20 04:30 05/03/20 04:31 DC Lactobacillus Rhamnosus (Culturelle) 1 cap BID 05/05/20 21:00 Lisinopril (Prinivil) 40 mg DAILY 05/04/20 09:00 05/05/20 08:46 40 MG Lorazepam (Ativan Inj) 0.5 mg PRN Q2HR PRN 05/03/20 17:30 05/03/20 17:24 0.5 MG Lorazepam (Ativan) 0.5 mg PRN Q2HR PRN 05/03/20 17:15 Cancel Morphine Sulfate (Morphine Sulfate) 4 mg PRN Q2HR PRN 05/03/20 04:15 05/04/20 04:14 DC Nitroglycerin (Nitrostat) 0.4 mg PRN Q5MIN PRN 05/03/20 03:15 05/03/20 03:25 0.4 MG Ondansetron HCl (Zofran) 4 mg PRN Q6HRS PRN 05/03/20 15:30 Pantoprazole Sodium (Protonix) 40 mg DAILYAC 05/04/20 07:30 05/05/20 08:45 40 MG Potassium Chloride (Klor-Con) 20 meq DAILYWBKFT 05/05/20 08:00 05/05/20 08:46 20 MEQ Ringer's Solution 1,000 ml @ 1,000 mls/hr 1X ONCE 05/03/20 04:00 05/03/20 04:59 DC 05/03/20 03:46 1,000 MLS/HR Risperidone (RisperDAL) 1 mg HS 05/04/20 21:00 05/04/20 20:26 1 MG Trazodone HCl (Desyrel) 150 mg QHS 05/03/20 23:00 05/04/20 20:26 150 MG Physical Exam: Mental Status Exam: 80-year-old female appears her stated age Cooperative but confused She is disoriented Thought processes concrete Denies auditory or visual hallucinations. No abnormal perception noted. Denies suicidal or homicidal thoughts. Mood is all right Affect is dysthymic Insight is limited Judgment is limited Impulse control is fair Attention span and concentration impaired Recent and remote memory impaired Physical Exam: Refer to Physician's note. QUALITY ASSURANCE ASSOCIATE: No focal deficit MSK: No EPS, TDK, or abnormal involuntary movements Diagnosis: Acute delirium, likely hypoactive, multifactorial Unspecified neurocognitive disorder, rule out major neurocognitive disorder. Major depressive disorder Unspecified anxiety disorder. Assessment: 80-year-old female struggling with acute delirium in context of ongoing infectious process. Additionally, history is consistent with some underlying neurocognitive decline which could be vascular in etiology. Family is in agreement to start risperidone for the resolution of delirium. Once delirium is resolved we will reassess for neurocognitive status. For depression and anxiety continue Cymbalta. Thomson is slightly better, however she continues to be disoriented. Oriented to year and place today. Plan: increase Risperidone 1 mg nightly to bid for the resolution of delirium. Continue Cymbalta as is. We may consider increasing Cymbalta if required. Risk, benefits, alternatives of the treatment are discussed. She is in agreement with plan and voiced understanding. Adverse drug reaction of the medications with black box warning are also discussed. Applied delirium protocol. Avoid sundowning. Avoid sedatives and hypnotics. HEBERT DIEGO MD May 05, 2020 19:53
[2020-05-05] MEDS: LACTOBACILLUS RHAMNOSUS GG 1 CAPSULE. PO SCH (21:09)
[2020-05-05] MEDS: risperiDONE 1 MG TABLET. PO SCH (21:09)
[2020-05-05] MEDS: ATORVASTATIN CALCIUM 40 MG TABLET. PO SCH (21:09)
[2020-05-05] MEDS: CYCLOBENZAPRINE 10 MG TABLET. PO SCH (21:09)
[2020-05-05] MEDS: traZODone 50 MG TABLET. PO SCH (21:09)
[2020-05-06 03:10] VITALS: BP 129/52
[2020-05-06 06:09] LABS: HEMATOCRIT 31.7 % (36.0-47.0); HEMOGLOBIN 10.9 g/dL (12.0-15.5); RED BLOOD COUNT 2.97 x10^6/uL (3.50-5.40); RED CELL DISTRIBUTION WIDTH 16.8 % (11.5-14.5); WHITE BLOOD COUNT 3.8 x10^3/uL (4.0-11.0)
[2020-05-06 07:00] VITALS: BP 166/76
[2020-05-06] MEDS ORDERED: CLOPIDOGREL BISULFATE 75 MG TABLET PO SCH (08:00)
[2020-05-06] MEDS ORDERED: FUROSEMIDE 40 MG TABLET. PO SCH (09:00)
[2020-05-06] MEDS: POTASSIUM CHLORIDE 20 MEQ TABLET.ER. PO SCH (09:10)
[2020-05-06] MEDS: risperiDONE 1 MG TABLET. PO SCH (09:10)
[2020-05-06] MEDS: CARVEDILOL 6.25 MG TABLET. PO SCH (09:10)
[2020-05-06] MEDS: PANTOPRAZOLE 40 MG TABLET.DR. PO SCH (09:10)
[2020-05-06] MEDS: DULoxetine HCL 30 MG CAPSULE.DR PO SCH (09:10)
[2020-05-06] MEDS: LACTOBACILLUS RHAMNOSUS GG 1 CAPSULE. PO SCH (09:10)
[2020-05-06] MEDS: LISINOPRIL 20 MG TABLET PO SCH (09:11)
[2020-05-06] MEDS: ASPIRIN ENTERIC COATED 81 MG TABLET.DR. PO SCH (09:11)
--- NOTE | 2020-05-06 10:32 | NUR ---
SS following up with discharge planning. SS reviewed pt chart and discussed with pt RN. SS received notification that pt is from [facility], ; fax [phone]. Pt is 1:1 and is currently on room air. Pt is on IV Rocephin. PT/OT recommended fpc unit. SS spoke with Izabella at [facility] and was notified that pt has a history of Sundowners and does have confusion at facility. Izabella reported that they can accept pt back and can do skilled rehabilitation at facility. COVID19 negative. SS phoned and faxed clinical to the [facility]. SS will continue to follow for discharge planning.
[2020-05-06 10:53] VITALS: BP 145/66
--- NOTE | 2020-05-06 10:54 | PDOC ---
PULMONARY PROGRESS NOTES DATE: 05/06/20 TIME: 10:53 Subjective no soa, on RA Vitals Vital Signs Date Time Temp Pulse Resp B/P (MAP) Pulse Ox O2 Delivery O2 Flow Rate FiO2 05/06/20 09:11 101 166/76 05/06/20 07:00 97.6 18 95 Room Air 97.6 05/06/20 03:10 2.0 General: Alert, No acute distress Lungs: Clear Cardiovascular: S1 Abdomen: Soft Neuro Exam: Alert Extremities: No Edema Labs Laboratory Tests Test 05/04/20 17:00 05/05/20 05:45 05/05/20 16:50 05/06/20 04:33 Urine Collection Type Unknown Urine Color Kamilla Urine Clarity Turbid Urine pH 6.0 (<5.0-8.0) Urine Specific [place] 1.015 (1.000-1.030) Urine Protein 30 mg/dL (NEG-TRACE) Urine Glucose (UA) Negative mg/dL (NEG) Urine Ketones (Stick) Negative mg/dL (NEG) Urine Blood Trace (NEG) Urine Nitrite Positive (NEG) Urine Bilirubin Small (NEG) Urine Urobilinogen Dipstick >=8.0 mg/dL (0.2 mg/dL) Urine Leukocyte Esterase Large (NEG) Urine RBC Field obscured /HPF (0-2) Urine WBC Tntc /HPF (0-4) Urine Bacteria Many /HPF (0-FEW) Heparin Anti-Xa Act, Unfractionated 0.78 IU/mL (0.30-0.70) 0.54 IU/mL (0.30-0.70) Sodium Level 140 mmol/L (136-145) Potassium Level 3.8 mmol/L (3.5-5.1) Chloride Level 104 mmol/L (98-107) Carbon Dioxide Level 30 mmol/L (21-32) Anion Gap 6 (6-14) Blood Urea Nitrogen 12 mg/dL (7-20) Creatinine 0.7 mg/dL (0.6-1.0) Estimated GFR (Cockcroft-Gault) 80.1 Glucose Level 130 mg/dL (70-99) Calcium Level 8.8 mg/dL (8.5-10.1) Troponin I Quantitative 2.901 ng/mL (0.000-0.055) White Blood Count 3.8 x10^3/uL (4.0-11.0) Red Blood Count 2.97 x10^6/uL (3.50-5.40) Hemoglobin 10.9 g/dL (12.0-15.5) Hematocrit 31.7 % (36.0-47.0) Mean Corpuscular Volume 107 fL (79-100) Mean Corpuscular Hemoglobin 37 pg (25-35) Mean Corpuscular Hemoglobin Concent 34 g/dL (31-37) Red Cell Distribution Width 16.8 % (11.5-14.5) Platelet Count 156 x10^3/uL (140-400) Laboratory Tests Test 05/05/20 16:50 05/06/20 04:33 Heparin Anti-Xa Act, Unfractionated 0.54 IU/mL (0.30-0.70) White Blood Count 3.8 x10^3/uL (4.0-11.0) Red Blood Count 2.97 x10^6/uL (3.50-5.40) Hemoglobin 10.9 g/dL (12.0-15.5) Hematocrit 31.7 % (36.0-47.0) Mean Corpuscular Volume 107 fL (79-100) Mean Corpuscular Hemoglobin 37 pg (25-35) Mean Corpuscular Hemoglobin Concent 34 g/dL (31-37) Red Cell Distribution Width 16.8 % (11.5-14.5) Platelet Count 156 x10^3/uL (140-400) Medications Active Scripts Medications Dose Route/Sig Max Daily Dose Days Date Category Trazodone Hcl 150 Mg Tablet 1 Tab PO QHS 30 05/03/20 Reported Sotalol (Sotalol Hcl) 80 Mg Tablet 1 Tab PO BID 05/03/20 Reported Lisinopril 40 Mg Tablet 1 Tab PO DAILY 05/03/20 Reported Fish Oil 1,000 Mg Softgel ([place]-3 Fatty Acids/Fish Oil) 1 Each Capsule 1 Cap PO DAILY 30 05/03/20 Reported Duloxetine Hcl 30 Mg Capsule.dr 30 Mg PO DAILY 05/03/20 Reported Ergocalciferol (Ergocalciferol (Vitamin D2)) 200 Mcg/1 Ml Drops 200 Mcg PO 05/03/20 Reported Cyclobenzaprine Hcl 5 Mg Tablet 1 Tab PO QHS 05/03/20 Reported D3-50 (Cholecalciferol (Vitamin D3)) 50,000 Unit Capsule 1 Cap PO WEEKLY 28 05/03/20 Reported Atorvastatin Calcium 40 Mg Tablet 1 Tab PO DAILY 05/03/20 Reported Aspirin Ec (Aspirin) 81 Mg Tablet.dr 1 Tab PO DAILY 05/03/20 Reported Ascorbic Acid 500 Mg Tablet 500 Mg PO 05/03/20 Reported Acetaminophen 325 Mg Tablet 2 Tab PO PRN DAILY PRN 30 05/03/20 Reported Impression . 1. Acute hypoxemic respiratory failure. 2. Acute on chronic systolic and diastolic heart failure.EF 35% 3. Chronic obstructive pulmonary disease. 4. Coronary artery disease with previous stent placement. 5. Tobacco dependence, in remission. 6. Non-ST segment elevation myocardial infarction. 7. Abnormal cxr c/w CHF Plan . PLAN: 1. can dc abx 2. Continue oxygen supplementation prn 3. IV Lasix.per cardiology 4. Follow Cardiology input. 5. Anticoagulation with heparin. DIEGO VYAS MD May 06, 2020 10:54
--- NOTE | 2020-05-06 10:54 | PDOC ---
[facility] PROGRESS NOTE Date of Service DOS: DATE: 05/06/20 TIME: 10:45 Chief Complaint Chief Complaint mages: Images CXR IMPRESSION: * Interstitial and alveolar opacities bilaterally which could be from edema or infiltrate. * Obliquely oriented line near the right apex partially seen. Would favor that this is secondary to overlap of structures rather than pleural line from pneumothorax given the morphology. Assessment/Plan Chest pain concerning for NSTEMI, rule out ACS Acute hypoxic respiratory failure DLD Pacemaker placement Chest pain concerning for unstable angina/NSTEMI Troponin of [phone] HYPOKALEMIA PLAN ADMIT CVC BED Continue aspirin, consider Plavix if intermediate risk will defer this to cardiology Cardiology consulted for predischarge stress testing or left heart cath Continue nitroglycerin as needed for pain Continue beta-vishal if blood pressures allow Continue high intensity statins IV morphine as needed Consider Lovenox Maintain O2 sats between 88 to 95% Trend troponins Repeat EKG in the a.m. Continue telemetry monitoring Monitor for electrolyte abnormalities Avoid NSAIDs Heparin drip for DVT prophylaxis Protonix GI prophylaxis ADA diet Full code Discussed with RN and SW Disposition pending cardiology evaluation Surrogate decision maker is the daughter REPLACE Claire 05/04, CONSULT PULM , ECHO Justifications for Admission Justifications for Admission Other Justification History of Present Illness History of Present Illness 05/06/2020 Patient seen and examined Patient was resting, NAD, under 1:1 observation Discussed with RN Discussed with fiber design engineer Discussed with behavioral health case manager Chart reviewed 05/05/2020 Patient seen and examined Patient was resting, NAD, under 1:1 observation Discussed with RN Discussed with behavioral health case manager Chart reviewed Vitals/I&O Vitals/I&O: Vital Signs Date Time Temp Pulse Resp B/P (MAP) Pulse Ox O2 Delivery O2 Flow Rate FiO2 05/06/20 09:11 101 166/76 05/06/20 07:00 97.6 18 95 Room Air 97.6 05/06/20 03:10 2.0 I & O 05/05/20 05/05/20 05/06/20 15:00 23:00 07:00 Intake Total 480 ml 300 ml Output Total 450 ml 375 ml Balance 30 ml -375 ml 300 ml Physical Exam Physical Exam: GEN: Minimal distress. Alert and oriented to self only. HEENT: Normal cephalic, atraumatic, EYES: Extraocular muscles are intact, pupil are equally round and reactive to light and accommodation MUSCULOSKELETAL: Well developed , well nourished, good range of motion ENDOCRINE: No thyromegaly was palpated LYMPHATICS: No cervical chain or axillary nodes were noted HEMATOPOIETIC: No bruising NECK: Supple, no JVD, no thyromegaly was noted LUNGS: Clear to auscultation in all lung adams without rhonchi or wheezing HEART: RRR, S!, S2 present. Peripheral pulses intact, no obvious murmurs noted ABDOMEN: Soft, nontender. Positive bowel sounds, no organomegaly, normal bowel sounds EXTREMITIES: Without clubbing, cyanosis, or edema. Pedal pulses intact. Neg ative Homans sign NEUROLOGIC: Normal speech and tone. A&O x 3, moves all extremities, no obvious focal deficits PSYCHIATRIC: Normal affect, normal mood. Stable SKIN: No ulcerations or rashes, good skin turgor, no jaundice VASCULAR: Good capillary refill, neurovascular bundle appears to be intact General: No acute distress Heart: Regular rate Lungs: Clear Abdomen: Normal bowel sounds Labs Labs: Laboratory Tests Test 05/05/20 16:50 05/06/20 04:33 Heparin Anti-Xa Act, Unfractionated 0.54 IU/mL (0.30-0.70) White Blood Count 3.8 x10^3/uL (4.0-11.0) Red Blood Count 2.97 x10^6/uL (3.50-5.40) Hemoglobin 10.9 g/dL (12.0-15.5) Hematocrit 31.7 % (36.0-47.0) Mean Corpuscular Volume 107 fL (79-100) Mean Corpuscular Hemoglobin 37 pg (25-35) Mean Corpuscular Hemoglobin Concent 34 g/dL (31-37) Red Cell Distribution Width 16.8 % (11.5-14.5) Platelet Count 156 x10^3/uL (140-400) Review of Systems Review of Systems: Patient denies weakness. Patient denies pain. Assessment and Plan Assessmemt and Plan Problems Medical Problems: (1) Abnormal EKG Status: Acute (2) History of pacemaker Status: Acute (3) Hyperlipidemia Status: Acute (4) Hypertension Status: Acute (5) NSTEMI (non-ST elevated myocardial infarction) Status: Acute Assessment NSTEMI Delirium Hyperlipdemia Plan Continue increased Risperidone as per psych Continue Plavix as per cardiology Continue 1:1 observation Cardiac monitoring Trend labs for troponin DVT Prophylaxis Home meds PT/OT Patient is DNR Comment Review of Relevant I have reviewed the following items [place] (where applicable) has been applied. Medications: Current Medications Medications (Trade) Dose Ordered Sig/Kerri Route PRN Reason Start Time Stop Time Status Last Admin Dose Admin Info (Anti-Coagulation Monitoring By Pharmacy) 1 each PRN DAILY PRN MC SEE COMMENTS 05/05/20 15:15 05/05/20 15:10 Lactobacillus Rhamnosus (Culturelle) 1 cap BID PO 05/05/20 21:00 05/06/20 09:10 Clopidogrel Bisulfate (Plavix) 75 mg 1X ONCE PO 05/05/20 16:15 05/05/20 16:16 DC 05/05/20 17:52 Clopidogrel Bisulfate (Plavix) 75 mg DAILYWBKFT PO 05/06/20 08:00 05/06/20 09:11 Furosemide (Lasix) 40 mg DAILY PO 05/06/20 09:00 05/06/20 09:11 Carvedilol (Coreg) 6.25 mg BIDWMEALS PO 05/05/20 17:00 05/06/20 09:10 Risperidone (RisperDAL) 1 mg BID PO 05/05/20 21:00 05/06/20 09:10 Justifications for Admission Chest Pain Indications Respiratory Distress?: Yes Justification for admission: Patient's respiratory distress as indicated by (SOB/tachypnea/abnormal breathing pattern plus hypoxemia/AMS/other evidence of respiratory compromise such as pulmonary edema on chest x-ray) will need inpatient level of care. Other Justification GISSELLE RIVERA III DO May 06, 2020 10:54
[2020-05-06] MEDS ORDERED: amLODIPine BESYLATE 10 MG TABLET PO SCH (14:30)
[2020-05-06 14:37] VITALS: BP 147/73
--- NOTE | 2020-05-06 14:46 | PDOC ---
LANE EPPERSON BAND PRESSER 05/06/20 1446: CARDIO Progress Notes Date and Time Date of Service 05/06/2020 Time of Evaluation 1200 Subjective Subjective: No Chest Pain, No shortness of breath, No Palpitations Vitals Vitals Vital Signs Date Time Temp Pulse Resp B/P (MAP) Pulse Ox O2 Delivery O2 Flow Rate FiO2 05/06/20 10:53 104 16 145/66 (92) 96 Room Air 05/06/20 08:00 2.0 05/06/20 07:00 97.6 97.6 Weight Weight [ ] Input and Output Intake and Output Intake and Output 05/06/20 07:00 Intake Total 780 ml Output Total 825 ml Balance -45 ml Intake Oral 780 ml Output Urine Total 825 ml Laboratory Labs Laboratory Tests Test 05/05/20 16:50 05/06/20 04:33 Heparin Anti-Xa Act, Unfractionated 0.54 IU/mL (0.30-0.70) White Blood Count 3.8 x10^3/uL (4.0-11.0) Red Blood Count 2.97 x10^6/uL (3.50-5.40) Hemoglobin 10.9 g/dL (12.0-15.5) Hematocrit 31.7 % (36.0-47.0) Mean Corpuscular Volume 107 fL (79-100) Mean Corpuscular Hemoglobin 37 pg (25-35) Mean Corpuscular Hemoglobin Concent 34 g/dL (31-37) Red Cell Distribution Width 16.8 % (11.5-14.5) Platelet Count 156 x10^3/uL (140-400) Microbiology Micro Microbiology 05/04/20 Urine Culture - Preliminary, Resulted Physical Exam HEENT: Neck Supple W Full Motion Chest: Symmetric LUNGS: Clear to Auscultation Heart: S1S2, RRR (SR) Abdomen: Soft N/T Extremities: No Calf Tenderness Neurology: alert, oriented (to time,self), follow commands Assessment Assessment 1. NSTEMI: Peaked trop at 3.4. was with CP but currently absent. elevation possibly from diffuse disease with associated CHF, AFIB and uncontrolled HTN 2. Acute likely on chronic diastolic/systolic CHF: appears compensated 3. Cardiomyopathy: Appears to be NICM. EF at 35-40% new was 50-55% on 03/03/2020 although MPI denotes EF of 34% and post stress at 43% on same day 4. CAD: past stents 5. PPM in situ: hx of SSS.(medtronic) SR with intermittent V pacing, normal function 98% RV pacing 6. HTN: labile episodes 7. HLP 8. Metabolic encephalopathy with hx of recurrent UTI 9. PAFIB: confirmed via interrogation.with longest episode in Few episodes since 04/30/2019 and on 05/03 for 37 min no HVR. AFIB burden is <0.1% 10. Dementia?: remains with period of confusion and forgetfulness Recommendations 1. Records reviewed. Continue with ASA and plavix. Given her low AFIB burden will defer any anticoagulation initiation to her primary oil seal assembler. 2. Continue GDMT. Lisinopril, lasix. Continue home sotalol and add 3.125 mg of coreg bid. Goal rate at 70. Continue GDMT. Continue home norvasc. 3. Follow up with Dr. Mac her oil seal assembler as an outpt. Agree with SNU pl acement 4. Would benefit referral to neurology , defer to PCP Records review noted LHC 03/05/2020 at [facility] LCx moderate irregularities, mid 30-50%, RCA with mild irregularities, LVEDP 16. LHC was done due to abnormal stress test. Treated medically Stents in 2009 RCA, LCx, LAD 2013 2 stents to LAD, with RCA Chronic RBBB Justicifation of Admission Dx: Justifications for Admission: Justification of Admission Dx: Yes Angina: [place] Worsening of Sym [place]: Acute NSTEMI ISABELLA CASEY MD 05/06/20 1906: CARDIO Progress Notes Assessment Assessment Patient seen and examined Discussed with our nurse practitioner and agree with assessment and plan as above. NSTEMI: Peaked trop at 3.4. Chest pain-free. Recent catheterization as below as above. Continuing on medical treatment. Compensated heart failure. Continuing medical treatment. Cardiomyopathy. Improved ejection fraction now at 50 to 55%. Previous work-up as noted above. Permanent pacemaker. History of sick sinus syndrome. Normal interrogation. Hypertension. Improved. Paroxysmal atrial fibrillation but low A. fib burden. Possible dementia as discussed above. LANE EPPERSON APRN May 06, 2020 14:46 ISABELLA CASEY MD May 06, 2020 19:06
--- NOTE | 2020-05-06 16:01 | SNU/HH DC ---
DISCHARGE ORDERS DISCHARGE INFORMATION: FINAL DIAGNOSIS Problems Medical Problems: (1) Abnormal EKG Status: Acute (2) History of pacemaker Status: Acute (3) Hyperlipidemia Status: Acute (4) Hypertension Status: Acute (5) NSTEMI (non-ST elevated myocardial infarction) Status: Acute CONDITION ON DISCHARGE: Stable CODE STATUS: Code Status: Full JAIL: SNF STAY <30 DAYS: Yes HOSPICE: HOSPICE: No HOSPICE EVAL & TREAT: No LTAC: ADMIT TO LTAC: No POST DISCHARGE ORDERS: ACTIVITY ORDERS: Activity as tolerated DIET AFTER DISCHARGE: Cardiac TREATMENT/EQUIPMENT ORDERS: Physical Therapy For: Evalulation/Treatment Occupational Therapy For: Evaluation/Treatment DISCHARGE MEDICATIONS: Home Meds Reported Medications Trazodone Hcl (TRAZODONE HCL) 150 Mg Tablet, 1 TAB PO QHS for 30 Days, #30 TAB 0 Refills 05/03/20 Sotalol Hcl (SOTALOL) 80 Mg Tablet, 1 TAB PO BID, #60 TAB 5 Refills 20 Lisinopril (LISINOPRIL) 40 Mg Tablet, 1 TAB PO DAILY, #30 TAB 5 Refills 20 [place]-3 Fatty Acids/Fish Oil (FISH OIL 1,000 MG SOFTGEL) 1 Each Capsule, 1 CAP PO DAILY for 30 Days, #30 CAP 0 Refills 05/03/20 Duloxetine Hcl (DULOXETINE HCL) 30 Mg Capsule.dr, 30 MG PO DAILY, CAP 05/03/20 Ergocalciferol (Vitamin D2) (Ergocalciferol) 200 Mcg/1 Ml Drops, 200 MCG PO, DROP 05/03/20 Cyclobenzaprine Hcl (CYCLOBENZAPRINE HCL) 5 Mg Tablet, 5 MG PO PRN Q8HRS PRN for SEE COMMENTS MDD , #30 TAB 05/03/20 Cholecalciferol (Vitamin D3) (D3-50) 50,000 Unit Capsule, 1 CAP PO WEEKLY for 28 Days, #4 CAP 0 Refills 05/03/20 Atorvastatin Calcium (ATORVASTATIN CALCIUM) 40 Mg Tablet, 1 TAB PO DAILY, #30 TAB 5 Refills 20 Aspirin (ASPIRIN EC) 81 Mg Tablet.dr, 1 TAB PO DAILY, #30 TAB 3 Refills 20 Ascorbic Acid (ASCORBIC ACID) 500 Mg Tablet, 500 MG PO, TAB 20 Acetaminophen (ACETAMINOPHEN) 325 Mg Tablet, 2 TAB PO PRN DAILY PRN for pain or fever for 30 Days, #30 TAB 0 Refills 05/03/20 GISSELLE RIVERA III DO May 06, 2020 16:01
[2020-05-06] MEDS ORDERED: PANT40TA77 PO (16:23)
[2020-05-06] MEDS ORDERED: AMLO10TA8 PO (16:23)
[2020-05-06] MEDS ORDERED: RISP1TAB43 PO (16:23)
[2020-05-06] MEDS ORDERED: FURO40TA4 PO (16:23)
[2020-05-06] MEDS ORDERED: CARV12.511 PO ×2 (16:23→16:28)
[2020-05-06] MEDS ORDERED: POTA20TA4 PO (16:23)
[2020-05-06] MEDS ORDERED: CLOP75TA PO (16:23)
[2020-05-06] MEDS ORDERED: LACT1CAP19 PO (16:25)
--- NOTE | 2020-05-06 16:25 | NUR ---
SS following up with discharge planning. Discharge orders received for return to the [facility]. SS phoned and faxed discharge orders to the [facility], ; fax [phone]. Pt will discharge today and return to the [facility] between 1730 and 1800 via [facility]. Pt, pt's family, and pt's RN notified.
[2020-05-06] MEDS ORDERED: SOTA80TA20 PO (16:28)
--- NOTE | 2020-05-06 16:29 | SNU/HH DC ---
DISCHARGE ORDERS DISCHARGE INFORMATION: DISCHARGE DATE: May 06, 2020 FINAL DIAGNOSIS Problems Medical Problems: (1) Abnormal EKG Status: Acute (2) History of pacemaker Status: Acute (3) Hyperlipidemia Status: Acute (4) Hypertension Status: Acute (5) NSTEMI (non-ST elevated myocardial infarction) Status: Acute CONDITION ON DISCHARGE: Stable CODE STATUS: Code Status: Full PENITENTIARY: SNF STAY <30 DAYS: Yes POST DISCHARGE ORDERS: ACTIVITY ORDERS: Activity as tolerated DIET AFTER DISCHARGE: Cardiac TREATMENT/EQUIPMENT ORDERS: Physical Therapy For: Evalulation/Treatment Occupational Therapy For: Evaluation/Treatment DISCHARGE MEDICATIONS: Home Meds Active Scripts Sotalol Hcl (BETAPACE) 80 Mg Tablet, 80 MG PO DAILY for heart for 30 Days, #30 TAB Prov:CASTLE,NIAL K III DO 05/06/20 Carvedilol (CARVEDILOL ) 12.5 Mg Tablet, 3.125 MG PO BIDWMEALS for heart for 30 Days, #15 TAB Prov:CASTLE,NIAL K III DO 05/06/20 Lactobacillus Rhamnosus Gg (CULTURELLE) 1 Each Cap.sprink, 1 CAP PO BID for heart for 30 Days, #60 CAP Prov:CASTLE,NIAL K III DO 05/06/20 Pantoprazole Sodium (PANTOPRAZOLE SODIUM ) 40 Mg Tablet.dr, 40 MG PO DAILYAC for heart for 30 Days, #30 TAB.SR Prov:CASTLE,NIAL K III DO 05/06/20 Furosemide (FUROSEMIDE) 40 Mg Tablet, 40 MG PO DAILY for heart for 30 Days, #30 TAB Prov:CASTLE,NIAL K III DO 20 Potassium Chloride (KLOR-CON M20) 20 Meq Tab.er.prt, 20 MEQ PO DAILYWBKFT for heart for 30 Days, #30 TAB.SR Prov:CASTLE,NIAL K III DO 20 Risperidone (RISPERDAL) 1 Mg Tablet, 1 MG PO BID for anxiety for 30 Days, #60 TAB Prov:CASTLE,NIAL K III DO 05/06/20 Amlodipine Besylate (AMLODIPINE BESYLATE) 10 Mg Tablet, 10 MG PO DAILY for heart for 30 Days, #30 TAB Prov:CASTLE,NIAL K III DO 05/06/20 Carvedilol (CARVEDILOL ) 12.5 Mg Tablet, 12.5 MG PO BIDWMEALS for heart for 30 Days, #60 TAB Prov:CASTLE,NIAL K III DO 05/06/20 Clopidogrel Bisulfate (CLOPIDOGREL) 75 Mg Tablet, 75 MG PO DAILYWBKFT for heart for 30 Days, #30 TAB Prov:CASTLE,NIAL K III DO 05/06/20 Reported Medications Trazodone Hcl (TRAZODONE HCL) 150 Mg Tablet, 1 TAB PO QHS for 30 Days, #30 TAB 0 Refills 05/03/20 Sotalol Hcl (SOTALOL) 80 Mg Tablet, 1 TAB PO BID, #60 TAB 5 Refills 05/03/20 Lisinopril (LISINOPRIL) 40 Mg Tablet, 1 TAB PO DAILY, #30 TAB 5 Refills 05/03/20 [place]-3 Fatty Acids/Fish Oil (FISH OIL 1,000 MG SOFTGEL) 1 Each Capsule, 1 CAP PO DAILY for 30 Days, #30 CAP 0 Refills 05/03/20 Duloxetine Hcl (DULOXETINE HCL) 30 Mg Capsule.dr, 30 MG PO DAILY, CAP 05/03/20 Ergocalciferol (Vitamin D2) (Ergocalciferol) 200 Mcg/1 Ml Drops, 200 MCG PO, DROP 05/03/20 Cyclobenzaprine Hcl (CYCLOBENZAPRINE HCL) 5 Mg Tablet, 5 MG PO PRN Q8HRS PRN for SEE COMMENTS MDD , #30 TAB 05/03/20 Cholecalciferol (Vitamin D3) (D3-50) 50,000 Unit Capsule, 1 CAP PO WEEKLY for 28 Days, #4 CAP 0 Refills 05/03/20 Atorvastatin Calcium (ATORVASTATIN CALCIUM) 40 Mg Tablet, 1 TAB PO DAILY, #30 TAB 5 Refills 05/03/20 Aspirin (ASPIRIN EC) 81 Mg Tablet.dr, 1 TAB PO DAILY, #30 TAB 3 Refills 05/03/20 Ascorbic Acid (ASCORBIC ACID) 500 Mg Tablet, 500 MG PO, TAB 05/03/20 Acetaminophen (ACETAMINOPHEN) 325 Mg Tablet, 2 TAB PO PRN DAILY PRN for pain or fever for 30 Days, #30 TAB 0 Refills 05/03/20 CASTLE,NIAL K III DO May 06, 2020 16:29
[2020-05-06] MEDS ORDERED: CARVEDILOL 3.125 MG TABLET. PO SCH (17:00)
[2020-05-06] MEDS ORDERED: CARVEDILOL 12.5 MG TABLET. PO SCH (17:00)
[2020-05-06] MEDS ORDERED: AMOX1TAB61 PO (17:06)
--- NOTE | 2020-05-06 17:28 | PDOC ---
F/U PHYSCH PROG NOTE Subjective: She is a female seen for follow-up. Progress is reviewed with nursing staff. No emotional or behavioral breakdown reported. She is more alert and in good mood compared to previous days. Daughter also endorsing slight improvement. However, still struggling with residual confusion which is not her baseline few months ago. Denies suicidal or homicidal thoughts. Denies auditory or visual hallucinations. No evidence of heath or hypomania. Tolerating medication denies adverse drug reaction. Objective: 14 point review of system is otherwise negative except for stated above. Vital Signs: Vital Signs Date Time Temp Pulse Resp B/P (MAP) Pulse Ox O2 Delivery O2 Flow Rate FiO2 05/06/20 14:37 97.7 112 18 147/73 (97) 95 Room Air 97.7 05/06/20 08:00 2.0 Labs: Laboratory Tests Test 05/06/20 04:33 White Blood Count 3.8 x10^3/uL (4.0-11.0) L Red Blood Count 2.97 x10^6/uL (3.50-5.40) L Hemoglobin 10.9 g/dL (12.0-15.5) L Hematocrit 31.7 % (36.0-47.0) L Mean Corpuscular Volume 107 fL (79-100) H Mean Corpuscular Hemoglobin 37 pg (25-35) H Mean Corpuscular Hemoglobin Concent 34 g/dL (31-37) Red Cell Distribution Width 16.8 % (11.5-14.5) H Platelet Count 156 x10^3/uL (140-400) Laboratory Tests 05/06/20 04:33 Medications: Current Medications Medications (Trade) Dose Ordered Sig/Kerri Start Time Stop Time Status Last Admin Dose Admin Acetaminophen (Tylenol) 650 mg PRN DAILY PRN 05/03/20 23:00 05/03/20 23:08 650 MG Amlodipine Besylate (Norvasc) 10 mg DAILY 05/06/20 14:30 Aspirin (Aspirin Chewable) 324 mg 1X ONCE 05/03/20 04:30 05/03/20 04:31 DC 05/03/20 04:15 324 MG Aspirin (Ecotrin) 81 mg DAILY 05/04/20 09:00 05/06/20 09:11 81 MG Atorvastatin Calcium (Lipitor) 40 mg QHS 05/04/20 21:00 9/1/20 21:09 40 MG Carvedilol (Coreg) 3.125 mg BIDWMEALS 05/06/20 17:00 Ceftriaxone Sodium (Rocephin) 1 gm Q24H 05/04/20 18:00 05/06/20 10:54 DC 05/05/20 17:51 1 GM Clopidogrel Bisulfate (Plavix) 75 mg DAILYWBKFT 05/06/20 08:00 05/06/20 09:11 75 MG Cyclobenzaprine HCl (Flexeril) 5 mg QHS 05/03/20 23:00 05/05/20 21:09 5 MG Duloxetine HCl (Cymbalta) 30 mg DAILY 05/04/20 09:00 05/06/20 09:10 30 MG Fentanyl Citrate (Fentanyl 2ml Vial) 50 mcg 1X ONCE 05/03/20 04:30 05/03/20 04:31 DC Furosemide (Lasix) 40 mg DAILY 05/06/20 09:00 05/06/20 09:11 40 MG Heparin Sodium (Porcine) (Heparin Sodium) 1,750 unit PRN Q6HRS PRN 05/03/20 19:30 05/06/20 11:21 DC 05/03/20 19:54 1,750 UNIT Heparin Sodium/ Dextrose 250 ml @ 8.34 mls/hr CONT PRN 05/03/20 19:30 05/06/20 11:21 DC 05/05/20 10:28 8.34 MLS/HR Info (Anti-Coagulation Monitoring By Pharmacy) 1 each PRN DAILY PRN 05/05/20 15:15 05/06/20 11:22 DC 05/05/20 15:10 1 EACH Info (CONTRAST GIVEN -- Rx MONITORING) 1 each PRN DAILY PRN 05/03/20 04:00 05/05/20 03:59 DC Iohexol (Omnipaque 350 Mg/ml) 70 ml 1X ONCE 05/03/20 04:30 05/03/20 04:31 DC Lactobacillus Rhamnosus (Culturelle) 1 cap BID 05/05/20 21:00 05/06/20 09:10 1 CAP Lisinopril (Prinivil) 40 mg DAILY 05/04/20 09:00 05/06/20 09:11 40 MG Lorazepam (Ativan Inj) 0.5 mg PRN Q2HR PRN 05/03/20 17:30 05/03/20 17:24 0.5 MG Lorazepam (Ativan) 0.5 mg PRN Q2HR PRN 05/03/20 17:15 Cancel Morphine Sulfate (Morphine Sulfate) 4 mg PRN Q2HR PRN 05/03/20 04:15 05/04/20 04:14 DC Nitroglycerin (Nitrostat) 0.4 mg PRN Q5MIN PRN 05/03/20 03:15 05/03/20 03:25 0.4 MG Ondansetron HCl (Zofran) 4 mg PRN Q6HRS PRN 05/03/20 15:30 Pantoprazole Sodium (Protonix) 40 mg DAILYAC 05/04/20 07:30 05/06/20 09:10 40 MG Potassium Chloride (Klor-Con) 20 meq DAILYWBKFT 05/05/20 08:00 05/06/20 09:10 20 MEQ Ringer's Solution 1,000 ml @ 1,000 mls/hr 1X ONCE 05/03/20 04:00 05/03/20 04:59 DC 05/03/20 03:46 1,000 MLS/HR Risperidone (RisperDAL) 1 mg BID 05/05/20 21:00 05/06/20 09:10 1 MG Sotalol HCl (Betapace) 80 mg DAILY 05/07/20 09:00 Trazodone HCl (Desyrel) 150 mg QHS 05/03/20 23:00 05/05/20 21:09 150 MG Physical Exam: Mental Status Exam: 80-year-old female appears her stated age Cooperative but confused She is disoriented Thought processes concrete Denies auditory or visual hallucinations. No abnormal perception noted. Denies suicidal or homicidal thoughts. Mood is all right Affect is dysthymic Insight is limited Judgment is limited Impulse control is fair Attention span and concentration impaired Recent and remote memory impaired Physical Exam: Refer to Physician's note. PHARMACY MANAGER: No focal deficit MSK: No EPS, TDK, or abnormal involuntary movements Diagnosis: Acute delirium, likely hypoactive, multifactorial Unspecified neurocognitive disorder, rule out major neurocognitive disorder. Major depressive disorder Unspecified anxiety disorder. Assessment: 80-year-old female struggling with acute delirium in context of ongoing infectious process. Additionally, history is consistent with some underlying ne urocognitive decline which could be vascular in etiology. Family is in agreement to start risperidone for the resolution of delirium. Once delirium is resolved we will reassess for neurocognitive status. For depression and anxiety continue Cymbalta. [place] is slightly better, however she continues to be disoriented. Oriented to year and place today. Plan: Continue Risperidone 1 mg nightly to bid for the resolution of delirium. Continue Cymbalta as is. We may consider increasing Cymbalta if required. Risk, benefits, alternatives of the treatment are discussed. She is in agreement with plan and voiced understanding. Adverse drug reaction of the medications with black box warning are also discussed. Applied delirium protocol. Avoid sundowning. Avoid sedatives and hypnotics. HEBERT DIEGO MD May 06, 2020 17:28
--- NOTE | 2020-05-06 17:59 | NUR ---
Discharge Note: WILLOW KENDALL [address] Discharge instructions and discharge home medications reviewed with Other facility and a copy given. All questions have been answered and understanding verbalized. The following instructions and handouts were given: medication list faxed, a copy provided to daughter who was at bedside and transported patient back to facility. Need follow up with Dr. Mac her metallurgical engineer in 1 - 2 weeks. Antibiotic for 3 days d/t UTI. Attempted to call report to [phone] but only got a voicemail to leave a message. Discontinued lines and drains: peripheral IV discontinued, dressing, clean, dry and intact. [facility]
[2020-05-07] MEDS ORDERED: SOTALOL 80 MG TABLET. PO SCH (09:00)
== END 2020-05-06 17:30 | DRG 280 ==
LOC: ER 02:54 → 2 SOUTH 06:05 → ED HOLD 06:38 → 2 SOUTH 19:59
PROVIDERS: ADMIT Family Medicine; ATTEND Family Medicine
PROC: 4B02XSZ Measurement of Cardiac Pacemaker, External Approach (ICD-10-PCS; principal; 2020-05-06)
DX: I21.4 Non-ST elevation (NSTEMI) myocardial infarction (principal); I50.43 Acute on chronic combined systolic (congestive) and diastolic (congestive) heart failure; J96.01 Acute respiratory failure with hypoxia; G93.41 Metabolic encephalopathy; I42.9 Cardiomyopathy, unspecified; Z20.828 Contact with and (suspected) exposure to other viral communicable diseases; E78.5 Hyperlipidemia, unspecified; I49.5 Sick sinus syndrome; F41.9 Anxiety disorder, unspecified; F32.9 Major depressive disorder, single episode, unspecified; I25.10 Atherosclerotic heart disease of native coronary artery without angina pectoris; J44.9 Chronic obstructive pulmonary disease, unspecified; I11.0 Hypertensive heart disease with heart failure; F17.201 Nicotine dependence, unspecified, in remission; E87.6 Hypokalemia; Z66 Do not resuscitate; I48.0 Paroxysmal atrial fibrillation; F03.90 Unspecified dementia, unspecified severity, without behavioral disturbance, psychotic disturbance, mood disturbance, and anxiety; Z91.81 History of falling; Z79.899 Other long term (current) drug therapy; Z95.5 Presence of coronary angioplasty implant and graft; Z87.440 Personal history of urinary (tract) infections; Z95.0 Presence of cardiac pacemaker; Z82.49 Family history of ischemic heart disease and other diseases of the circulatory system
CPT/HCPCS: 36415; 71045; 80048; 80053; 80061; 81001; 82803; 82962; 83036; 83735; 83880; 84484; 85025; 85027; 85520; 85610; 85730; 87077; 87086; 87186; 87426; 93005; 93306; 96365; 96366; 96375; 96376; 99285; J0696; J1644; J1940; J2060; J7120; 97116-GP; 97530-GO; 97535-GO; G0378; U0003-CS

== ENCOUNTER → 2021-04-01 | Outpatient (CLI) | payer MEDICARE ==
[~2021-04-01] MED LIST: ACET325T21 PO; AMLO-187 PO; AMOX1TAB61 PO; ASCO500T3 PO; ASPI-886 PO; ATOR40TA59 PO; CARV12.511 PO; CHOL500021 PO; CLOP75TA PO; CYCL5TAB PO; DULO30CA44 PO; ERGO800010 PO; FURO40TA4 PO; LACT1CAP19 PO; LISI-130 PO; OMEG1CAP50 PO; PANT40TA77 PO; POTA-121 PO; RISP1TAB43 PO; SOTA80TA20 PO; SOTA80TA48 PO; TRAZ150T49 PO
--- NOTE | 2021-04-01 14:23 | KCIC ---
CT HEAD/BRAIN WO Date: 04/01/2021 1:10 PM Clinical Indication: Hx. fall. about 1 week ago. Hematoma to back of head. / Spl. Instructions: / Hi story: Comparison: None. Technique: 5 mm axial tomographic images were obtained of the head without contrast. These were view ed on brain and bone windows. One or more of the following dose reduction techniques were utilized: A utomated exposure control (AEC), Adjustment of mA and/or kV according to patient size, Use of iterati ve reconstruction technique such as ASiR, CT scan done according to ALARA and image gently/image salguero ly Findings: Mild generalized cerebral and cerebellar volume loss. Mild nonspecific periventricular hypoattenuatio n, most commonly seen with chronic small vessel ischemic disease. Calcified atherosclerosis of the bi lateral cavernous and paraclinoid internal carotid arteries and intracranial vertebral arteries. No intra- or extra-axial mass or fluid collection. No acute hemorrhage. Dilation of the lateral and t hird ventricles, slightly out of proportion to the degree of cerebral volume loss. The daniel-white mat ter junction is normal. The subarachnoid cisterns are patent. The visualized paranasal sinuses are normal. The visualized portions of the orbits and globes are no rmal. The mastoid air cells are clear. The credit products officer topogram shows no lytic lesion or fracture. Impression: 1. No acute intracranial hemorrhage. 2. Dilation of the lateral and third ventricles, slightly out of proportion to the degree of cerebral volume loss. While this could relate to advanced central atrophy, normal pressure hydrocephalus coul d also be considered in the proper clinical setting. 3. Mild cerebral volume loss. Mild chronic small vessel ischemic disease. Electronically signed by: Mitchell Thomas MD (04/01/2021 2:20 PM) [id number]
== END ==
LOC: KCIC CT 12:53
PROVIDERS: ATTEND Nurse Practitioner Family
DX: S00.93XA Contusion of unspecified part of head, initial encounter (principal); I67.82 Cerebral ischemia; I67.2 Cerebral atherosclerosis; W19.XXXA Unspecified fall, initial encounter; Y93.89 Activity, other specified; Y92.89 Other specified places as the place of occurrence of the external cause; Y99.8 Other external cause status
CPT/HCPCS: 70450